=== PATIENT | male | born 1970 | race Caucasian/White ===

== ENCOUNTER 2020-06-11 12:08 | Outpatient (REF) | payer OTHER, SELFPAY ==
[2020-06-11 14:00] LABS: MANUAL DIFF FLAG NO
[2020-06-11 14:04] LABS: Basophils Absolute Auto 0.1 X10*3/uL (0.0-0.2); Eosinophils Absolute Auto 0.4 X10*3/uL (0.0-0.4); Eosinophils Percent Auto 2.8 % (0-4); Hematocrit 46.6 % (42-52); Hemoglobin 15.5 g/dl (14.0-18.0); Imm Gran Abs Auto 0.06 X10*3/uL (0.00-0.03); Imm Gran Pct Auto 0.4 % (0.0-0.4); Lymphocytes Absolute Auto 4.7 X10*3/uL (1.2-4.9); Mean Corpuscular HGB Conc 33.3 g/dl (31.0-36.0); Mean Corpuscular Hemoglobin 30.6 pg (27.0-33.0); Mean Corpuscular Volume 92.1 fL (80-98); Mean Platelet Volume 9.7 fL (9.4-12.4); Monocytes Absolute Auto 0.8 X10*3/uL (0.1-1.2); Monocytes Percent Auto 5.9 % (2-11); Neutrophils Percent Auto 56.9 % (45-73); Platelet Count 417 X10*3/uL (160-400); Red Blood Count 5.06 X10*6/uL (4.60-5.80); White Blood Count 14.1 X10*3/uL (4.8-10.8)
[2020-06-11 14:56] LABS: Alanine Aminotransferase 28 U/L (0-40); Albumin Level 4.5 g/dL (3.5-5.0); Alkaline Phosphatase 108 U/L (39-117); Anion Gap 14 (12-20); Aspartate Amino Transferase 18 U/L (5-37); Bilirubin Total 0.3 mg/dL (0.0-1.0); Blood Urea Nitrogen 5 mg/dL (9-16); Calcium 9.4 mg/dL (8.4-10.2); Carbon Dioxide 29 mmol/L (22-29); Chloride 102 mmol/L (96-108); Estimated Glomerular Filt Rate > 60; Glucose Random 88 mg/dL (60-115); Potassium 4.5 mmol/l (3.3-5.1); Sodium 140 mmol/L (135-145); Total Protein 7.4 g/dL (6.5-8.0)
== END 2020-06-11 12:09 | disposition home or self-care (01) ==
LOC: HO.HMGCLDS 12:08
PROVIDERS: PCP Nurse Practitioner Family; Visit Provider Nurse Practitioner Family
DX: R63.0 Anorexia (principal); R52 Pain, unspecified; Z20.828 Contact with and (suspected) exposure to other viral communicable diseases
CPT/HCPCS: 36415; 80053; 85025; 87635

== ENCOUNTER 2020-06-13 15:49 | Emergency (ER) | payer OTHER, SELFPAY ==
--- NOTE | 2020-06-13 | CT_ITS ---
EXAMINATION: CT HEAD WITHOUT CONTRAST CT CERVICAL SPINE WITHOUT CONTRAST CLINICAL INFORMATION: Headache. Neck pain. COMPARISON: CT head from 03/26/2015. TECHNIQUE: Contiguous axial imaging was performed from the skull base to vertex without intravenous administration of contrast. Contiguous axial imaging was performed from the upper chest through the skull base without intravenous administration of contrast. Coronal and sagittal reformats were obtained at the acquisition workstation. DLP: 1104 mGy-cm This CT examination was performed using dose optimization techniques as appropriate, variously including the following: *Automated exposure control. *Adjustment of mA and/or kV according to patient size (this includes techniques or standardized protocols for targeted exams where dose is matched to indication/reason for exam; i.e. extremities or head). *Use of iterative reconstruction technique. FINDINGS: Head: There is no evidence of acute intracranial hemorrhage or edematous territorial infarction. There is no abnormal attenuation within the brain parenchyma. Clemente-white matter differentiation is preserved. The ventricles are normal in size and configuration. No evidence for obstructive hydrocephalus. No abnormal mass effect or midline shift. Chronic small right-sided choroid fissure cyst. No extra-axial fluid collections. No acute soft tissue or osseous abnormalities. There is a subperiosteal lipoma along the left aspect of the frontal bone, measuring 2.8 cm wide by 1.1 cm deep. Moderate mucosal thickening of the paranasal sinuses, including near complete opacification of the right maxillary sinus. Rightward nasal septal deviation. The mastoid air cells and middle ear cavities remain well aerated. Cervical Spine: The atlantooccipital and atlantoaxial articulations remain well aligned. Mild reversal the normal cervical lordosis centered on C4. Otherwise, there is anatomic alignment of the vertebral bodies and posterior elements. No evidence of acute fracture or subluxation. The vertebral body heights are maintained. Mild to moderate degenerative disc disease from C3-C6. Mild disc-osteophyte complexes at C3-C4 and C4-C5. No evidence of overt spinal canal stenosis. No significant osseous encroachment on the neural foramina. There is no prevertebral soft tissue swelling. The thyroid gland and remaining cervical soft tissues are normal in appearance. The lung apices are notable for underlying centrilobular emphysema. IMPRESSION: 1. No evidence of acute intracranial hemorrhage or edematous territorial infarction. 2. No evidence of acute fracture or traumatic subluxation of the cervical spine. 3. Moderate mucosal sinonasal disease with near complete opacification of the right maxillary sinus. 4. Mild multilevel degenerative spinal arthropathy of the cervical spine. 5. Emphysema.
[2020-06-13 16:03] VITALS: BP 142/81; PULSE 72; RESP 18; TEMP 35.6; O2SAT 98; BMI 29.3
--- NOTE | 2020-06-13 17:57 | ED.GENADULT ---
HPI - General Adult General Chief complaint: General Medical <KAJAL Garcia Last Filed: 06/14/20 01:57> Stated complaint: STIFF NECK <KAJAL Garcia Last Filed: 06/14/20 01:57> Time Seen by Provider: 06/13/20 18:38 <KAJAL Garcia Last Filed: 06/14/20 01:57> Source: patient <KAJAL Garcia Last Filed: 06/14/20 01:57> Mode of arrival: ambulatory <Anju Calles NP - Last Filed: 06/14/20 01:57> Limitations: no limitations <KAJAL Garcia Last Filed: 06/14/20 01:57> History of Present Illness HPI narrative: patient presents with neck pain, stiffness and headache. He has had this pain for several weeks however the pain has got worse today. Is having a difficult time with daily activities because of the neck pain and stiffness. He does have full range of motion, moves all extremities against resistance, does not report any chest pain or pressure, palpitations, abdominal pain, abdominal distention, fevers, chills, dizziness, lightheadedness, weakness, fevers and chills. <KAJAL Garcia Last Filed: 06/14/20 01:57> Onset (ago): week(s) ( Several) <Anju Calles NP - Last Filed: 06/14/20 01:57> Location: head and neck <KAJAL Garcia Last Filed: 06/14/20 01:57> Severity: moderate <KAJAL Garcia Last Filed: 06/14/20 01:57> Severity scale (1-10): 8 <Anju Calles NP - Last Filed: 06/14/20 01:57> Quality: aching and constant <Anju Calles NP - Last Filed: 06/14/20 01:57> Pain Consistency: constant <KAJAL Garcia Last Filed: 06/14/20 01:57> Relieving factors: none <KAJAL Garcia Last Filed: 06/14/20 01:57> Exacerbating factors: movement <Anju Calles NP - Last Filed: 06/14/20 01:57> Associated symptoms: denies other symptoms <Anju Calles NP - Last Filed: 06/14/20 01:57> Treatments prior to arrival: NSAID <Anju Calles NP - Last Filed: 06/14/20 01:57> Related Data Home medications: Previous Rx's Medication Instructions Recorded tramadol 50 mg PO Q8H PRN #10 tab 06/13/20 <Anju Calles NP - Last Filed: 06/14/20 01:57> Allergies/adverse reactions: Allergies Allergy/AdvReac Type Severity Reaction Status Date / Time penicillin V Allergy Unknown Unknown Verified 06/13/20 16:02 Penicillins [PENICILLINS] Allergy Unknown UNKNOWN Verified 06/13/20 16:02 <Anju Calles NP - Last Filed: 06/14/20 01:57> Review of Systems Review of Systems: Yes all other systems are reviewed and are negative <Anju Calles NP - Last Filed: 06/14/20 01:57> Constitutional: Constitutional: Reports headache(s) <Anju Calles NP - Last Filed: 06/14/20 01:57> Eyes: Eyes: Reports no additional eye complaints <Anju Calles NP - Last Filed: 06/14/20 01:57> ENT: Reports headache(s) and Reports neck pain <Anju Calles NP - Last Filed: 06/14/20 01:57> Cardiovascular: Cardiovascular: Reports no additional cardiovascular complaints <Anju Calles NP - Last Filed: 06/14/20 01:57> Respiratory: Respiratory: Reports no additional respiratory complaints <Anju Calles NP - Last Filed: 06/14/20 01:57> Gastrointestinal: Gastrointestinal: Reports no additional gastrointestinal complaints <Anju Calles NP - Last Filed: 06/14/20 01:57> Genitourinary: Genitourinary: Reports no additional male genitourinary complaints <Anju Calles NP - Last Filed: 06/14/20 01:57> Musculoskeletal: Musculoskeletal: Reports no additional musculoskeletal complaints <Anju Calles NP - Last Filed: 06/14/20 01:57> Integumentary/Breasts: Skin/Breast: Reports system reviewed and no additional complaints, except as docu <Anju Calles NP - Last Filed: 06/14/20 01:57> Neurologic: Reports system reviewed and no additional complaints, except as documented and Reports headache(s) <Anju Calles NP - Last Filed: 06/14/20 01:57> Psychiatric: Psychiatric: Reports no additional psychiatric complaints <Anju Calles NP - Last Filed: 06/14/20 01:57> Endocrine: Endocrine: Reports no additional endocrine complaints <Ajnu Calles NP - Last Filed: 06/14/20 01:57> Hematologic/Lymphatic: Hematologic/Lymphatic: Reports no additional hematologic/lymphatic complaints <Anju Calles NP - Last Filed: 06/14/20 01:57> [facility] Past Medical History Attestation statement: The following information was validated with the patient. <Anju Calles NP - Last Filed: 06/14/20 01:57> Source: old records reviewed <Anju Calles NP - Last Filed: 06/14/20 01:57> Medical History: Medical History (Updated 06/14/20 @ 00:00 by Hubert Miguel) No known health problems <Anju Calles NP - Last Filed: 06/14/20 01:57> Surgical History: Surgical History (Updated 06/13/20 @ 16:06 by Alexandra Maya) Hx of tonsillectomy <Anju Calles NP - Last Filed: 06/14/20 01:57> Social History Social History: Social History Smoking Status: Current every day smoker Smoked in Last 30 Days: Yes Use of substances other than those prescribed or required for medical reasons: Yes Substance Use Type: Marijuana Substance Use Frequency: Socially Advance Directives: No Advance Directives Information Provided: Yes <Anju Calles NP - Last Filed: 06/14/20 01:57> Physical Exam Vital Signs and I&O and Narrative: Vital Signs and I&O: Vital Signs Temp 98.1 F 06/13/20 19:29 Pulse 62 06/13/20 19:29 Resp 16 06/13/20 19:29 BP 124/72 10/07/20 19:29 Pulse Ox 96 06/13/20 19:29 Intake & Output 06/13/20 06/13/20 06/14/20 06:59 18:59 06:59 Weight 80 kg Body Mass Index 29.3 <Anju Calles NP - Last Filed: 06/14/20 01:57> Vital Signs and I&O: Vital Signs Temp 98.1 F 06/13/20 19:29 Pulse 62 06/13/20 19:29 Resp 16 06/13/20 19:29 BP 124/72 06/13/20 19:29 Pulse Ox 96 06/13/20 19:29 Intake & Output 06/13/20 06/13/20 06/14/20 06:59 18:59 06:59 Weight 80 kg Body Mass Index 29.3 <Gentry To DO - Last Filed: 06/14/20 02:30> Const: General: cooperative, healthy appearing, comfortable, no acute distress, well developed, alert, awake and Physically active <Anju Calles NP - Last Filed: 06/14/20 01:57> Nutritional Appearance: average body habitus and well nourished <Anju Calles NP - Last Filed: 06/14/20 01:57> Orientation/consciousness: patient oriented x3 <Anju Calles NP - Last Filed: 06/14/20 01:57> Limitations: no limitations <Anju Calles NP - Last Filed: 06/14/20 01:57> HENMT: Head: Yes normal to inspection, Yes normocephalic, Yes atraumatic and No Temporal artery tenderness present <Anju Calles NP - Last Filed: 06/14/20 01:57> Ears: hearing grossly normal bilaterally and TM's normal bilaterally <Anju Calles NP - Last Filed: 06/14/20 01:57> General nose exam: Normal external nose present and Normal nares present <Anju Calles NP - Last Filed: 06/14/20 01:57> Face and sinus: Yes normal facial exam <Anju Calles NP - Last Filed: 06/14/20 01:57> Mouth: Normal oral and palatal mucosa present <Anju Calles NP - Last Filed: 06/14/20 01:57> Throat: Yes posterior oropharynx normal, Yes tonsils normal and Yes uvula midline <Anju Calles NP - Last Filed: 06/14/20 01:57> Eyes: General: appearance normal, both eyes and all related structures <Anju Calles NP - Last Filed: 06/14/20 01:57> Alignment and Position: alignment normal <Anju Calles NP - Last Filed: 06/14/20 01:57> Eyelids: Yes eyelids normal <Anju Calles [employer] - Last Filed: 06/14/20 01:57> Pupils: Equal, round and reactive pupils present <Anju Calles NP - Last Filed: 06/14/20 01:57> EOM: EOMs intact bilaterally <Anju Calles NP - Last Filed: 06/14/20 01:57> Neck: Neck: Yes normal visual inspection, Yes full ROM, Yes no lymphadenopathy, Yes no meningeal signs, Yes trachea midline, No anterior neck swelling, No positive Brudzinski's sign, No positive Kernig's sign, Yes tender ( vertebral tenderness) and Yes no JVD <Anju Calles [employer] MEMBER - Last Filed: 06/14/20 01:57> Lymphatic: no lymphadenopathy noted <Anju Calles NP - Last Filed: 06/14/20 01:57> Chest: Chest palpation & inspection: normal inspection of the chest and normal palpation of entire chest wall <Anju Calles NP - Last Filed: 06/14/20 01:57> Resp: Effort & Inspection: normal respiratory effort and able to speak in complete sentences <Anju Calles NP - Last Filed: 06/14/20 01:57> Auscultation: clear to auscultation bilaterally <Anju Calles NP - Last Filed: 06/14/20 01:57> Cardio: Rate: regular rate <Anju Calles NP - Last Filed: 06/14/20 01:57> Rhythm: regular rhythm <Anju Calles NP - Last Filed: 06/14/20 01:57> Heart sounds: S1 normal heart sound present and S2 normal heart sound present <Anju Calles NP - Last Filed: 06/14/20 01:57> GI: Inspection: Yes normal to inspection <Anju Calles NP - Last Filed: 06/14/20 01:57> Auscultation: normal bowel sounds <Anju Calles [employer]BER - Last Filed: 06/14/20 01:57> : General: Yes no CVA tenderness <Anju Calles [employer] MEMBER - Last Filed: 06/14/20 01:57> Back/Spine/Pelvis: Back: no CVA tenderness <Anju Calles [employer]BER - Last Filed: 06/14/20 01:57> Cervical Spine: cervical ROM normal, No pain with cervical ROM, No cervical spasm, Cervical spine tenderness and No step off deformity <Anju Calles [employer] MEMBER - Last Filed: 06/14/20 01:57> Thoracic/Lumbar Spine: thoracic and lumbar spine normal to inspection <Anju Calles [employer] MEMBER - Last Filed: 06/14/20 01:57> Skin: General skin exam: no rashes or lesions noted <Anju Calles [employer]BER - Last Filed: 06/14/20 01:57> Rashes: no rashes <Anju Calles [employer] MEMBER - Last Filed: 06/14/20 01:57> Neuro: General: patient oriented x3 and no meningeal signs <Anju Calles NP - Last Filed: 06/14/20 01:57> Cranial nerves: Yes CN's II-XII intact bilaterally, Yes Facial sensation intact/muscles of mastication intact, Yes Intact sense of smell present and Yes Equal, round and reactive pupils present <Anju Calles [employer] MEMBER - Last Filed: 06/14/20 01:57> Cognition (Neuro): normal cognition <Anju Calles [employer]BER - Last Filed: 06/14/20 01:57> Gait exam (Neuro): Normal gait present <Anju Calles NP - Last Filed: 06/14/20 01:57> Motor exam (neuro): 5/5 motor strength present throughout <Anju Calles NP - Last Filed: 06/14/20 01:57> Extrem: General: Yes normal to inspection, Yes full ROM and Yes capillary refill normal <Anju Calles [employer] - Last Filed: 06/14/20 01:57> Psych: Appearance: grossly normal <Anju CallesKAJAL - Last Filed: 06/14/20 01:57> Mental Status: mental status grossly normal <Anju CallesKAJAL - Last Filed: 06/14/20 01:57> Speech and movement: Normal speech and movement present <Anju Ferrellbrenden [employer]BER - Last Filed: 06/14/20 01:57> Attitude: cooperative <Anju MooreKAJAL musa - Last Filed: 06/14/20 01:57> Thought process: Normal thought process present <Anju CallesKAJAL - Last Filed: 06/14/20 01:57> Course Reevaluation(s) Reevaluation #1: CT scans are negative, patient agrees to follow-up with pain management. <Anju MooreKAJAL musa - Last Filed: 06/14/20 01:57> Time: 20:28 <Anju MooreKAJAL musa - Last Filed: 06/14/20 01:57> Medical Decision Making Differential Diagnosis Differential Diagnosis: cervical fracture, degenerative disc disease, meningitis <Anju FerrellKAJAL wilcox - Last Filed: 06/14/20 01:57> Medical Records Medical records reviewed: Yes I reviewed the patient's medical records. <Anju MooreKAJAL musa - Last Filed: 06/14/20 01:57> Lab Data Lab results reviewed: Yes I reviewed the patient's lab results. <Anju MooreKAJAL musa - Last Filed: 06/14/20 01:57> Result diagrams: : 06/13/20 19:58 06/13/20 19:58 <Anju CallesKAJAL - Last Filed: 06/14/20 01:57> Labs: Lab Results 06/13/20 06/13/20 06/13/20 Range/Units 19:58 19:58 19:58 WBC 13.0 H (4.8-10.8) X10*3/uL RBC 4.92 (4.60-5.80) X10*6/uL Hgb 15.3 (14.0-18.0) g/dl Hct 44.7 (42-52) % MCV 90.9 (80-98) fL MCH 31.1 (27.0-33.0) pg MCHC 34.2 (31.0-36.0) g/dl RDW 12.8 (11.0-16.0) % Plt Count 358 (160-400) X10*3/uL MPV 9.2 L (9.4-12.4) fL Immature Gran % (Auto) 0.2 (0.0-0.4) % Neut % (Auto) 48.1 (45-73) % Lymph % (Auto) 40.8 H (20-40) % [place] % (Auto) 6.8 (2-11) % Eos % (Auto) 3.0 (0-4) % Baso % (Auto) 1.1 (0-2) % Lymph # (Auto) 5.3 H (1.2-4.9) X10*3/uL [place] # (Auto) 0.9 (0.1-1.2) X10*3/uL Eos # (Auto) 0.4 (0.0-0.4) X10*3/uL Baso # (Auto) 0.1 (0.0-0.2) X10*3/uL Abs Immat Gran (auto) 0.03 (0.00-0.03) X10*3/uL Absolute Neuts (auto) 6.3 (2.0-8.3) X10*3/uL Absolute Nucleated RBC 0.000 (0.0-0.012) X10*3/uL Nucleated RBC % (auto) 0.0 (0.0-0.2) /100WBC Smear Tech's Comments VERIFIED PT 12.1 (10.8-13.0) SEC INR 1.0 (0.9-1.1) Sodium 139 (135-145) mmol/L Potassium 4.1 (3.3-5.1) mmol/l Chloride 104 (96-108) mmol/L Carbon Dioxide 26 (22-29) mmol/L Anion Gap 13 (12-20) BUN 7 L (9-16) mg/dL Creatinine 0.76 (0.5-1.4) mg/dL Estim Creat Clear Calc 114.5 Estimated GFR > 60 Random Glucose 88 (60-115) mg/dL Calcium 8.6 (8.4-10.2) mg/dL <Candy Marli, [employer] MEMBER - Last Filed: 06/14/20 01:57> Lab Results 06/13/20 06/13/20 06/13/20 Range/Units 19:58 19:58 19:58 WBC 13.0 H (4.8-10.8) X10*3/uL RBC 4.92 (4.60-5.80) X10*6/uL Hgb 15.3 (14.0-18.0) g/dl Hct 44.7 (42-52) % MCV 90.9 (80-98) fL MCH 31.1 (27.0-33.0) pg MCHC 34.2 (31.0-36.0) g/dl RDW 12.8 (11.0-16.0) % Plt Count 358 (160-400) X10*3/uL MPV 9.2 L (9.4-12.4) fL Immature Gran % (Auto) 0.2 (0.0-0.4) % Neut % (Auto) 48.1 (45-73) % Lymph % (Auto) 40.8 H (20-40) % [place] % (Auto) 6.8 (2-11) % Eos % (Auto) 3.0 (0-4) % Baso % (Auto) 1.1 (0-2) % Lymph # (Auto) 5.3 H (1.2-4.9) X10*3/uL [place] # (Auto) 0.9 (0.1-1.2) X10*3/uL Eos # (Auto) 0.4 (0.0-0.4) X10*3/uL Baso # (Auto) 0.1 (0.0-0.2) X10*3/uL Abs Immat Gran (auto) 0.03 (0.00-0.03) X10*3/uL Absolute Neuts (auto) 6.3 (2.0-8.3) X10*3/uL Absolute Nucleated RBC 0.000 (0.0-0.012) X10*3/uL Nucleated RBC % (auto) 0.0 (0.0-0.2) /100WBC Smear Tech's Comments VERIFIED PT 12.1 (10.8-13.0) SEC INR 1.0 (0.9-1.1) Sodium 139 (135-145) mmol/L Potassium 4.1 (3.3-5.1) mmol/l Chloride 104 (96-108) mmol/L Carbon Dioxide 26 (22-29) mmol/L Anion Gap 13 (12-20) BUN 7 L (9-16) mg/dL Creatinine 0.76 (0.5-1.4) mg/dL Estim Creat Clear Calc 114.5 Estimated GFR > 60 Random Glucose 88 (60-115) mg/dL Calcium 8.6 (8.4-10.2) mg/dL <Gentry To DO - Last Filed: 06/14/20 02:30> Imaging Data CT scan - head: Attestation: I personally reviewed and interpreted this imaging study as follows: <Anju Calles NP - Last Filed: 06/14/20 01:57> Radiologist's impression: FINDINGS: Head: There is no evidence of acute intracranial hemorrhage or edematous territorial infarction. There is no abnormal attenuation within the brain parenchyma. Clemente-white matter differentiation is preserved. The ventricles are normal in size and configuration. No evidence for obstructive hydrocephalus. No abnormal mass effect or midline shift. Chronic small right-sided choroid fissure cyst. No extra-axial fluid collections. No acute soft tissue or osseous abnormalities. There is a subperiosteal lipoma along the left aspect of the frontal bone, measuring 2.8 cm wide by 1.1 cm deep. Moderate mucosal thickening of the paranasal sinuses, including near complete opacification of the right maxillary sinus. Rightward nasal septal deviation. The mastoid air cells and middle ear cavities remain well aerated. Cervical Spine: The atlantooccipital and atlantoaxial articulations remain well aligned. Mild reversal the normal cervical lordosis centered on C4. Otherwise, there is anatomic alignment of the vertebral bodies and posterior elements. No evidence of acute fracture or subluxation. The vertebral body heights are maintained. Mild to moderate degenerative disc disease from C3-C6. Mild disc-osteophyte complexes at C3-C4 and C4-C5. No evidence of overt spinal canal stenosis. No significant osseous encroachment on the neural foramina. There is no prevertebral soft tissue swelling. The thyroid gland and remaining cervical soft tissues are normal in appearance. The lung apices are notable for underlying centrilobular emphysema. IMPRESSION: 1. No evidence of acute intracranial hemorrhage or edematous territorial infarction. 2. No evidence of acute fracture or traumatic subluxation of the cervical spine. 3. Moderate mucosal sinonasal disease with near complete opacification of the right maxillary sinus. 4. Mild multilevel degenerative spinal arthropathy of the cervical spine. 5. Emphysema <Anju Calles NP - Last Filed: 06/14/20:57> Chest x-ray: Attestation: I personally reviewed and interpreted this imaging study as follows: <KAJAL Garcia Last Filed: 06/14/20 01:57> Radiologist's impression: FINDINGS: No significant abnormality is noted involving the heart, lungs, mediastinum, bony thorax or soft tissues. IMPRESSION: Unremarkable examination. <KAJAL Garcia Last Filed: 06/14/20 01:57> Discharge Plan Discharge Clinical Impression: Degeneration, intervertebral disc, cervical <Anju Calles NP - Last Filed: 06/14/20:57> Patient Disposition: Home, Self-Care <KAJAL Garcia Last Filed: 06/14/20 01:57> Instructions: Degenerative Disc Disease (ED) <KAJAL Garcia Last Filed: 06/14/20 01:57> Additional Instructions: you were evaluated for neck pain. CT scan shows degenerative disc disease. Follow-up with pain management. Please call and make an appointment follow-up with primary care provider as needed. Return to the emergency department for any new, concerning, or worsening symptoms. <KAJAL Garcia Last Filed: 06/14/20 01:57> Prescriptions: New tramadol 50 mg tablet 50 mg PO Q8H PRN (Reason: pain) Qty: 10 RF: 0 <KAJAL Garcia Last Filed: 06/14/20 01:57> Referrals: Royer Zuñiga MD [Physician] - 2 days ( cervical disc degeneration) <KAJAL Garcia Last Filed: 06/14/20 01:57> Stand Alone Forms: Work/School Release <KAJAL Garcia Last Filed: 06/14/20 01:57> Interventions: ED Discharge Assessment Last Done: 06/13/20 20:54 <Anju Calles NP - Last Filed: 06/14/20 01:57> Discharge Date/Time: 06/13/20 20:55 <Anju Calles NP - Last Filed: 06/14/20 01:57>
[2020-06-13 18:33] VITALS: BP 97/66; PULSE 63; RESP 16; TEMP 36.9; O2SAT 97
--- NOTE | 2020-06-13 18:39 | XR_ITS ---
EXAMINATION: XR CHEST CLINICAL INFORMATION: Baseline COMPARISON: None TECHNIQUE: Frontal portable view of the chest was obtained. 6:51 PM FINDINGS: No significant abnormality is noted involving the heart, lungs, mediastinum, bony thorax or soft tissues. IMPRESSION: Unremarkable examination.
[2020-06-13 19:29] VITALS: BP 124/72; PULSE 62; RESP 16; TEMP 36.7; O2SAT 96
[2020-06-13 20:06] LABS: Basophils Absolute Auto 0.1 X10*3/uL (0.0-0.2); Basophils Percent Auto 1.1 % (0-2); Eosinophils Absolute Auto 0.4 X10*3/uL (0.0-0.4); Hematocrit 44.7 % (42-52); Hemoglobin 15.3 g/dl (14.0-18.0); Imm Gran Abs Auto 0.03 X10*3/uL (0.00-0.03); Imm Gran Pct Auto 0.2 % (0.0-0.4); Lymphocytes Absolute Auto 5.3 X10*3/uL (1.2-4.9); Lymphocytes Percent Auto 40.8 % (20-40); MANUAL DIFF FLAG SCAN; Mean Corpuscular HGB Conc 34.2 g/dl (31.0-36.0); Mean Corpuscular Hemoglobin 31.1 pg (27.0-33.0); Mean Corpuscular Volume 90.9 fL (80-98); Mean Platelet Volume 9.2 fL (9.4-12.4); Monocytes Absolute Auto 0.9 X10*3/uL (0.1-1.2); Monocytes Percent Auto 6.8 % (2-11); Neutrophils Absolute Auto 6.3 X10*3/uL (2.0-8.3); Neutrophils Percent Auto 48.1 % (45-73); Platelet Count 358 X10*3/uL (160-400); Red Blood Count 4.92 X10*6/uL (4.60-5.80); Red Cell Distribution Width 12.8 % (11.0-16.0); SCAN SMEAR FLAG 1
[2020-06-13 20:26] LABS: Anion Gap 13 (12-20); Blood Urea Nitrogen 7 mg/dL (9-16); Calcium 8.6 mg/dL (8.4-10.2); Carbon Dioxide 26 mmol/L (22-29); Chloride 104 mmol/L (96-108); Creatinine Clr Calc Pharmacy 114.5; Estimated Glomerular Filt Rate > 60; Glucose Random 88 mg/dL (60-115); Potassium 4.1 mmol/l (3.3-5.1); Sodium 139 mmol/L (135-145)
[2020-06-13 20:28] LABS: Prothrombin Time 12.1 SEC (10.8-13.0)
[2020-06-13 20:30] LABS: SLIDE REVIEW VERIFIED
[2020-06-13] MEDS: Ketorolac Tromethamine 30 MG/ML VIAL IM (20:44)
== END 2020-06-13 20:55 | disposition home or self-care (01) ==
PROVIDERS: Nurse Practitioner Family; Emergency Provider Emergency Medicine; PCP Nurse Practitioner Family
DX: M50.30 Other cervical disc degeneration, unspecified cervical region (principal); F17.200 Nicotine dependence, unspecified, uncomplicated
CPT/HCPCS: 36415; 70450; 71045; 72125; 80048; 85025; 85610; 96372; 99284; J1885

== ENCOUNTER → 2020-07-04 08:26 | Outpatient (BNVA) | payer OTHER, SELFPAY | PROVIDERS: PCP Nurse Practitioner Family; Visit Provider Surgery | DX: Z76.89 Persons encountering health services in other specified circumstances (principal) ==

== ENCOUNTER 2020-07-23 07:33 | Outpatient (REF) | payer OTHER, SELFPAY ==
[2020-07-23 07:53] VITALS: BP 152/74; PULSE 74; RESP 16; TEMP 36.9; O2SAT 96
[2020-07-23 07:57] VITALS: BMI 27.4
[2020-07-23 08:38] VITALS: BP 114/69; PULSE 65; RESP 16; O2SAT 96
--- NOTE | 2020-07-23 08:58 | OP_ITS ---
SURGEON: Harry Torres MD INDICATIONS: The patient is a 50-year-old male with note of a lipomatous mass in the forehead measuring about 3.5 cm x 3 cm. He wanted this removed. He understood the technique of excision under local anesthesia and is aware of the risks, benefits, and alternatives. PREOPERATIVE DIAGNOSIS: Lipoma, forehead. POSTOPERATIVE DIAGNOSIS: Lipoma, forehead. PROCEDURE PERFORMED: Excision of lipoma from the forehead. ESTIMATED BLOOD LOSS: COMPLICATIONS: ANESTHESIA: ASSISTANTS: SPECIMENS: DESCRIPTION OF PROCEDURE: He was brought into the minor procedure room. He was placed supine. The area of the lipoma was prepped and draped. Lidocaine 1% was used for local anesthesia. An incision was made in the skin overlying the lipoma transversely using blade #15, it was carried down to full-thickness skin and subcutaneous fat until we visualized the lipoma. We sharply dissected the lipoma off the rest of the subcutaneous layer until this completely delivered and sent as specimen. I irrigated the area of excision. I closed the incision with full-thickness nylon 5-0 interrupted sutures. Dressings were applied. He tolerated procedure well. There were no complications noted. He will be seen in the office for followup in the next week for removal of sutures. MD ROXANA Bernal/MIMIL / [id number]
== END 2020-07-23 07:34 | disposition home or self-care (01) ==
LOC: HO.MS 07:33
PROVIDERS: PCP Nurse Practitioner Family; Visit Provider Surgery
PROC: (CPT 11444; principal; 2020-07-23 08:00)
DX: D17.0 Benign lipomatous neoplasm of skin and subcutaneous tissue of head, face and neck (principal)
CPT/HCPCS: 11444; 88304

== ENCOUNTER → 2020-08-01 10:04 | Outpatient (BNVA) | payer OTHER, SELFPAY | PROVIDERS: PCP Nurse Practitioner Family; Visit Provider Surgery | DX: Z76.89 Persons encountering health services in other specified circumstances (principal) ==

== ENCOUNTER 2021-01-05 05:04 | Emergency (ER) | payer SELFPAY ==
[2021-01-05 05:09] VITALS: BP 134/65; PULSE 69; RESP 16; TEMP 36.7; O2SAT 96; BMI 27.4
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
== END 2021-01-05 07:37 | disposition home or self-care (01) ==
PROVIDERS: Emergency Provider Emergency Medicine
DX: H65.91 Unspecified nonsuppurative otitis media, right ear (principal); H92.01 Otalgia, right ear; F17.200 Nicotine dependence, unspecified, uncomplicated; Z71.6 Tobacco abuse counseling; F12.90 Cannabis use, unspecified, uncomplicated; Z79.899 Other long term (current) drug therapy
CPT/HCPCS: 99283

== ENCOUNTER 2021-04-16 12:30 | Emergency (ER) | payer SELFPAY ==
--- NOTE | 2021-04-16 | ECG_ITS ---
Test Reason : CHEST PAIN Blood Pressure : / mmHG Vent. Rate : 073 BPM Atrial Rate : 073 BPM P-R Int : 152 ms QRS Dur : 080 ms QT Int : 410 ms P-R-T Axes : 060 070 058 degrees QTc Int : 451 ms Normal sinus rhythm T-wave inversion in Anteroseptal leads / Anterior leads When compared with ECG of 16-SEP-2005 14:20, T wave inversion now evident in Anterior leads QT has lengthened Referred By: Generic ED Physician Electronically Signed By:ELIANA MCCOLLUM MD
--- NOTE | ~2021-04-16 | XR_ITS ---
EXAMINATION: XR CHEST CLINICAL INFORMATION: Chest pain COMPARISON: June 13, 2020 TECHNIQUE: 2 views of the chest were obtained. FINDINGS: No significant abnormality is noted involving the heart, lungs, mediastinum, bony thorax or soft tissues. XR/XR chest 2V IMPRESSION: No acute disease.
[2021-04-16 14:28] VITALS: BP 135/96; PULSE 76; RESP 18; TEMP 36.2; O2SAT 97; BMI 22.4
[2021-04-16 14:54] LABS: MANUAL DIFF FLAG NO
[2021-04-16 15:03] LABS: Basophils Absolute Auto 0.1 X10*3/uL (0.0-0.2); Eosinophils Absolute Auto 0.2 X10*3/uL (0.0-0.4); Eosinophils Percent Auto 1.5 % (0-4); Hematocrit 51.4 % (42-52); Hemoglobin 17.9 g/dl (14.0-18.0); Imm Gran Abs Auto 0.03 X10*3/uL (0.00-0.03); Imm Gran Pct Auto 0.2 % (0.0-0.4); Lymphocytes Absolute Auto 4.2 X10*3/uL (1.2-4.9); Lymphocytes Percent Auto 35.1 % (20-40); Mean Corpuscular HGB Conc 34.8 g/dl (31.0-36.0); Mean Corpuscular Hemoglobin 31.4 pg (27.0-33.0); Mean Corpuscular Volume 90.2 fL (80-98); Mean Platelet Volume 8.5 fL (9.4-12.4); Monocytes Percent Auto 7.9 % (2-11); Neutrophils Absolute Auto 6.6 X10*3/uL (2.0-8.3); Neutrophils Percent Auto 54.3 % (45-73); Platelet Count 370 X10*3/uL (160-400); Red Cell Distribution Width 14.8 % (11.0-16.0); White Blood Count 12.1 X10*3/uL (4.8-10.8)
[2021-04-16 15:32] LABS: Anion Gap 15 (12-20); Blood Urea Nitrogen 3 mg/dL (9-16); Calcium 9.3 mg/dL (8.4-10.2); Carbon Dioxide 33 mmol/L (22-29); Chloride 99 mmol/L (96-108); Creatinine Clr Calc Pharmacy 98.1; Estimated Glomerular Filt Rate > 60; Glucose Random 87 mg/dL (60-115); Potassium 3.5 mmol/L (3.3-5.1); Sodium 143 mmol/L (135-145)
[2021-04-16 15:35] LABS: Troponin-I High Sensitivity < 3.5 ng/L (<3.5-35.0)
[2021-04-16 19:52] VITALS: BP 194/106; PULSE 78; RESP 15; O2SAT 95
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
[2021-04-16 21:57] VITALS: BP 144/85; PULSE 59; RESP 16; TEMP 36.9; O2SAT 95
[2021-04-16 22:00] VITALS: BP 142/80; PULSE 59; RESP 16; TEMP 36.9
[2021-04-16 22:33] LABS: Troponin-I High Sensitivity 3.8 ng/L (<3.5-35.0)
== END 2021-04-17 01:02 | disposition home or self-care (01) ==
PROVIDERS: Emergency Provider Emergency Medicine; PCP Nurse Practitioner Family
DX: R07.9 Chest pain, unspecified (principal); F10.129 Alcohol abuse with intoxication, unspecified; Y90.9 Presence of alcohol in blood, level not specified
CPT/HCPCS: 36415; 71046; 80048; 84484; 85025; 93005; 99283; 99285

== ENCOUNTER 2021-07-30 08:00 | Emergency (ER) | payer OTHER, SELFPAY ==
--- NOTE | 2021-07-30 | ECG_ITS ---
Test Reason : CHEST PAIN Blood Pressure : / mmHG Vent. Rate : 070 BPM Atrial Rate : 070 BPM P-R Int : 156 ms QRS Dur : 072 ms QT Int : 378 ms P-R-T Axes : 073 080 074 degrees QTc Int : 408 ms Sinus rhythm with marked sinus arrhythmia Otherwise normal ECG When compared with ECG of 30-JUL-2021 09:18, No significant change was found Referred By: Antonette Mendoza Electronically Signed By:
[2021-07-30 08:07] VITALS: BP 143/98; PULSE 89; RESP 18; TEMP 36.6; O2SAT 96; BMI 25.7
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
[2021-07-30] MEDS: 0.9 % Sodium Chloride 1,000 ML 999 ML IVCONT (09:07)
[2021-07-30 09:11] LABS: MANUAL DIFF FLAG NO
[2021-07-30] MEDS: ondansetron HCL 4 MG/2 ML VIAL IVPUSH (09:12)
[2021-07-30] MEDS: Famotidine/PF 20 MG/2 ML VIAL IVPUSH (09:13)
[2021-07-30] MEDS: Multivitamin TABLET 1 TAB PO (09:14)
[2021-07-30] MEDS: chlordiazePOXIDE HCl 25 MG CAPSULE PO (09:14)
[2021-07-30] MEDS: Magnesium Hydrox/Alum Hydrox 30 ML ORAL.SUSP PO (09:14)
[2021-07-30 09:17] LABS: Basophils Absolute Auto 0.2 X10*3/uL (0.0-0.2); Basophils Percent Auto 1.1 % (0-2); Eosinophils Absolute Auto 0.1 X10*3/uL (0.0-0.4); Eosinophils Percent Auto 0.5 % (0-4); Hematocrit 48.2 % (42.0-52.0); Hemoglobin 17.1 g/dl (14.0-18.0); Imm Gran Abs Auto 0.04 X10*3/uL (0.00-0.03); Imm Gran Pct Auto 0.3 % (0.0-0.4); Lymphocytes Absolute Auto 2.8 X10*3/uL (1.2-4.9); Lymphocytes Percent Auto 21.3 % (20-40); Mean Corpuscular HGB Conc 35.5 g/dl (31.0-36.0); Mean Corpuscular Hemoglobin 31.8 pg (27.0-33.0); Mean Corpuscular Volume 89.6 fL (80.0-98.0); Monocytes Absolute Auto 0.8 X10*3/uL (0.1-1.2); Monocytes Percent Auto 6.1 % (2-11); Neutrophils Absolute Auto 9.3 x10*3/uL (2.0-8.3); Neutrophils Percent Auto 70.7 % (45-73); Platelet Count 444 X10*3/uL (160-400); Red Blood Count 5.38 X10*6/uL (4.60-5.80); Red Cell Distribution Width 13.2 % (11.0-16.0); White Blood Count 13.2 X10*3/uL (4.8-10.8)
[2021-07-30 09:37] LABS: Troponin-I High Sensitivity < 3.5 ng/L (<3.5-35.0)
[2021-07-30 09:42] LABS: COVID-19 Test Negative (Negative)
[2021-07-30] MEDS: Nicotine 21 MG PATCH.TD24 TRANSDERMA (10:14)
--- NOTE | 2021-07-30 10:14 | PHA.MEDREC ---
Pharmacy Consult ? Medication Reconciliation Pharmacy has completed the medication reconciliation. There are no remarkable issues for provider's attention. Chantal Parham, LaurenD
[2021-07-30 10:37] VITALS: BP 139/83; PULSE 74; RESP 14; O2SAT 97
[2021-07-30 11:34] LABS: Alanine Aminotransferase 19 U/L (0-40); Albumin Level 4.1 g/dL (3.5-5.0); Alkaline Phosphatase 131 U/L (39-117); Anion Gap 14 (12-20); Aspartate Amino Transferase 22 U/L (5-37); Bilirubin Direct 0.3 mg/dL (0.0-0.5); Bilirubin Total 0.5 mg/dL (0.0-1.0); Blood Urea Nitrogen 6 mg/dL (9-16); Calcium 8.8 mg/dL (8.4-10.2); Carbon Dioxide 28 mmol/L (22-29); Chloride 103 mmol/L (96-108); Creatinine Clr Calc Pharmacy 81.7; Estimated Glomerular Filt Rate > 60; Glucose Random 101 mg/dL (60-115); Lipase 17 U/L (8-78); Magnesium 1.8 mg/dL (1.6-2.6); Sodium 140 mmol/L (135-145); Total Protein 7.2 g/dL (6.5-8.0)
[2021-07-30 11:35] LABS: Ethanol < 10 mg/dL
[2021-07-30 11:50] LABS: Appearance Urine CLEAR; Color Urine YELLOW; Glucose Urine UA NEG (NEG); Leukocyte Esterase Urine NEG (NEG); Nitrite Urine NEG (NEG); Specific Gravity - Urine 1.015 (1.005-1.025); Urine Blood NEG (NEG); Urine Ketones NEG (NEG); Urine Protein NEG (NEG-TRACE)
[2021-07-30 12:04] LABS: Amphetamine Screen Urine Not Detected (Not Detect); Barbiturates, Urine Not Detected (Not Detect); Benzodiazepines Screen Urine Not Detected (Not Detect); Cannabinoid Screen Urine POSITIVE (Not Detect); Cocaine Screen Urine Not Detected (Not Detect); Fentanyl, urine Not Detected (Not Detect); Opiate Screen Urine Not Detected (Not Detect); Phencyclidine Screen Urine Not Detected (Not Detect)
[2021-07-30 14:41] VITALS: BP 141/94; PULSE 75; RESP 16; TEMP 36.9; O2SAT 98
[2021-07-30] MEDS: LORazepam 1 MG TABLET PO (18:14)
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
[2021-07-31 05:58] VITALS: BP 159/88; PULSE 69; RESP 16; TEMP 36.7; O2SAT 96
--- NOTE | 2021-07-31 06:00 | PC.NURSE ---
Patient slept through the night, no distress observed/reported, behavior calm, quiet, and non-concerning during overnight shift, VS at baseline, will continue to monitor
--- NOTE | 2021-07-31 06:05 | PC.NURSE ---
Patient's disposition is Kathie f/u by care team in the morning
[2021-07-31] MEDS: Nicotine 21 MG PATCH.TD24 TRANSDERMA (08:40)
--- NOTE | 2021-08-02 09:58 | MHC.CARE ---
Check in call was not able to be completed due to not having phone number on file.
== END 2021-07-31 12:06 | disposition home or self-care (01) ==
PROVIDERS: Physician Assistant; Emergency Provider Emergency Medicine; PCP Nurse Practitioner Family
DX: F33.1 Major depressive disorder, recurrent, moderate (principal); R45.851 Suicidal ideations; J44.9 Chronic obstructive pulmonary disease, unspecified; F12.90 Cannabis use, unspecified, uncomplicated; R10.9 Unspecified abdominal pain; R07.9 Chest pain, unspecified; R11.2 Nausea with vomiting, unspecified; I25.10 Atherosclerotic heart disease of native coronary artery without angina pectoris; Z20.822 Contact with and (suspected) exposure to COVID-19; Z79.82 Long term (current) use of aspirin; F17.200 Nicotine dependence, unspecified, uncomplicated; Z71.6 Tobacco abuse counseling
CPT/HCPCS: 36415; 80048; 80076; 80307; 81003; 82077; 83690; 83735; 84484; 85025; 87635; 93005; 96361; 96374; 96375; 99284; J2405

== ENCOUNTER 2021-10-01 09:38 | Emergency (ER) | payer OTHER, SELFPAY ==
[2021-10-01 09:51] VITALS: BP 135/93; PULSE 72; RESP 19; TEMP 36.6; O2SAT 97; BMI 25.0
[2021-10-01 10:56] LABS: MANUAL DIFF FLAG NO
[2021-10-01 11:00] LABS: Appearance Urine CLEAR; Basophils Absolute Auto 0.1 X10*3/uL (0.0-0.2); Basophils Percent Auto 0.9 % (0-2); Color Urine YELLOW; Eosinophils Percent Auto 0.3 % (0-4); Glucose Urine UA NEG (NEG); Hematocrit 48.9 % (42.0-52.0); Hemoglobin 17.2 g/dl (14.0-18.0); Imm Gran Abs Auto 0.02 X10*3/uL (0.00-0.03); Imm Gran Pct Auto 0.3 % (0.0-0.4); Leukocyte Esterase Urine NEG (NEG); Lymphocytes Absolute Auto 2.6 X10*3/uL (1.2-4.9); Lymphocytes Percent Auto 35.3 % (20-40); Mean Corpuscular HGB Conc 35.2 g/dl (31.0-36.0); Mean Corpuscular Hemoglobin 31.9 pg (27.0-33.0); Mean Corpuscular Volume 90.6 fL (80.0-98.0); Mean Platelet Volume 8.6 fL (9.4-12.4); Monocytes Absolute Auto 0.8 X10*3/uL (0.1-1.2); Monocytes Percent Auto 10.6 % (2-11); Neutrophils Absolute Auto 3.9 x10*3/uL (2.0-8.3); Neutrophils Percent Auto 52.6 % (45-73); Nitrite Urine NEG (NEG); Platelet Count 273 X10*3/uL (160-400); Red Cell Distribution Width 14.1 % (11.0-16.0); Specific Gravity - Urine <= 1.005 (1.005-1.025); Urine Blood NEG (NEG); Urine Ketones NEG (NEG); Urine Protein NEG (NEG-TRACE); White Blood Count 7.5 X10*3/uL (4.8-10.8)
[2021-10-01 11:05] VITALS: BP 170/103; PULSE 75; RESP 17; TEMP 36.8; O2SAT 98
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
[2021-10-01 11:22] LABS: Alanine Aminotransferase 24 U/L (0-40); Albumin Level 3.8 g/dL (3.5-5.0); Alkaline Phosphatase 159 U/L (39-117); Anion Gap 16 (12-20); Aspartate Amino Transferase 37 U/L (5-37); Bilirubin Direct 0.2 mg/dL (0.0-0.5); Bilirubin Total 0.3 mg/dL (0.0-1.0); Blood Urea Nitrogen 7 mg/dL (9-16); Carbon Dioxide 26 mmol/L (22-29); Chloride 101 mmol/L (96-108); Creatinine Clr Calc Pharmacy 86.3; Estimated Glomerular Filt Rate > 60; Glucose Random 90 mg/dL (60-115); Lipase 90 U/L (8-78); Potassium 4.4 mmol/L (3.3-5.1); Sodium 139 mmol/L (135-145)
[2021-10-01 11:57] LABS: COVID-19 Test Negative (Negative); IDNOW Serial# 9DD0AD1C
[2021-10-01 12:02] LABS: MANUAL DIFF FLAG NO
[2021-10-01] MEDS: 0.9 % Sodium Chloride 1,000 ML 999 ML IVCONT (12:03)
[2021-10-01 12:04] LABS: Basophils Percent Auto 0.5 % (0-2); Eosinophils Percent Auto 0.5 % (0-4); Hematocrit 46.2 % (42.0-52.0); Hemoglobin 16.4 g/dl (14.0-18.0); Imm Gran Abs Auto 0.01 X10*3/uL (0.00-0.03); Imm Gran Pct Auto 0.1 % (0.0-0.4); Lymphocytes Absolute Auto 3.2 X10*3/uL (1.2-4.9); Lymphocytes Percent Auto 42.7 % (20-40); Mean Corpuscular HGB Conc 35.5 g/dl (31.0-36.0); Mean Corpuscular Hemoglobin 31.8 pg (27.0-33.0); Mean Corpuscular Volume 89.5 fL (80.0-98.0); Mean Platelet Volume 8.7 fL (9.4-12.4); Monocytes Absolute Auto 0.7 X10*3/uL (0.1-1.2); Monocytes Percent Auto 9.2 % (2-11); Neutrophils Absolute Auto 3.6 x10*3/uL (2.0-8.3); Platelet Count 255 X10*3/uL (160-400); Red Blood Count 5.16 X10*6/uL (4.60-5.80); Red Cell Distribution Width 13.9 % (11.0-16.0); White Blood Count 7.6 X10*3/uL (4.8-10.8)
[2021-10-01] MEDS: ondansetron HCL 4 MG/2 ML VIAL IVPUSH (12:50)
[2021-10-01] MEDS: Loperamide HCl 2 MG CAPSULE 4 MG PO (12:50)
[2021-10-01 12:51] VITALS: BP 154/91; PULSE 81; RESP 18; TEMP 36.7; O2SAT 99
[2021-10-01 12:58] LABS: OBS Int Ctl Valid YES; OBS1 NEGATIVE (NEGATIVE)
[2021-10-01] MEDS: Morphine Sulfate 2 MG/ML CARTRIDGE 1 MG IVPUSH (14:21)
[2021-10-01 15:07] VITALS: BP 162/85; PULSE 73; RESP 20; TEMP 36.7; O2SAT 99
== END 2021-10-01 15:09 | disposition home or self-care (01) ==
PROVIDERS: Emergency Provider Emergency Medicine; PCP Nurse Practitioner Family
DX: M79.10 Myalgia, unspecified site (principal); R19.7 Diarrhea, unspecified; K64.8 Other hemorrhoids; Z20.822 Contact with and (suspected) exposure to COVID-19; Z79.899 Other long term (current) drug therapy
CPT/HCPCS: 36415; 80048; 80076; 81003; 82272; 83690; 85025; 87635; 96361; 96374; 96375; 99283; 99284; J2270; J2405

== ENCOUNTER 2022-03-04 13:07 | Emergency (ER) | payer OTHER, SELFPAY ==
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
[2022-03-04 14:49] VITALS: BP 130/78; PULSE 72; RESP 18; TEMP 36.9; BMI 25.7
[2022-03-04 15:25] LABS: COVID-19 Test Negative (Negative); IDNOW Serial# 16C4AD1C
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
[2022-03-04] MEDS: Lidocaine HCl 1 % MPF 5 ML VIAL SUBCUT (19:33)
[2022-03-04 19:35] LABS: Basophils Percent Auto 0.7 % (0-2); Imm Gran Abs Auto 0.05 X10*3/uL (0.00-0.03); Imm Gran Pct Auto 0.3 % (0.0-0.4); MANUAL DIFF FLAG SCAN; Mean Corpuscular HGB Conc 34.8 g/dl (31.0-36.0); Mean Corpuscular Hemoglobin 30.5 pg (27.0-33.0); Red Cell Distribution Width 12.9 % (11.0-16.0); SCAN SMEAR FLAG 1
[2022-03-04] MEDS: Diphth,Pertus(ACell),Tet Adult 0.5 ML SYRINGE IM (19:41)
[2022-03-04 19:48] LABS: Basophils Absolute Auto 0.1 X10*3/uL (0.0-0.2); Eosinophils Absolute Auto 0.1 X10*3/uL (0.0-0.4); Eosinophils Percent Auto 0.7 % (0-4); Hematocrit 41.7 % (42.0-52.0); Hemoglobin 14.5 g/dl (14.0-18.0); Lymphocytes Absolute Auto 4.8 X10*3/uL (1.2-4.9); Lymphocytes Percent Auto 31.8 % (20-40); Mean Corpuscular Volume 87.8 fL (80.0-98.0); Mean Platelet Volume 9.1 fL (9.4-12.4); Monocytes Percent Auto 6.5 % (2-11); Platelet Count 348 X10*3/uL (160-400); Red Blood Count 4.75 X10*6/uL (4.60-5.80)
[2022-03-04 19:49] LABS: Alanine Aminotransferase 17 U/L (0-40); Albumin Level 4.4 g/dL (3.5-5.0); Alkaline Phosphatase 94 U/L (39-117); Anion Gap 14 (12-20); Aspartate Amino Transferase 30 U/L (5-37); Bilirubin Direct 0.3 mg/dL (0.0-0.5); Bilirubin Total 0.8 mg/dL (0.0-1.0); Blood Urea Nitrogen 9 mg/dL (9-16); Calcium 9.3 mg/dL (8.4-10.2); Carbon Dioxide 27 mmol/L (22-29); Chloride 102 mmol/L (96-108); Creatinine Clr Calc Pharmacy 72.4; Estimated Glomerular Filt Rate > 60; Glucose Random 105 mg/dL (60-115); Lipase 14 U/L (8-78); Potassium 3.9 mmol/L (3.3-5.1); Sodium 139 mmol/L (135-145); Total Protein 7.5 g/dL (6.5-8.0)
[2022-03-04 19:53] LABS: SLIDE REVIEW VERIFIED
[2022-03-04] MEDS: iohexoL 350 MG/ML 100 ML INFUS..BTL IV (20:08)
== END 2022-03-04 22:12 | disposition home or self-care (01) ==
PROVIDERS: Physician Assistant; Physician Assistant Medical; Emergency Provider Emergency Medicine; PCP Nurse Practitioner Family
DX: S01.112A Laceration without foreign body of left eyelid and periocular area, initial encounter (principal); R10.31 Right lower quadrant pain; J44.9 Chronic obstructive pulmonary disease, unspecified; Z79.82 Long term (current) use of aspirin; Z20.822 Contact with and (suspected) exposure to COVID-19; Y04.2XXA Assault by strike against or bumped into by another person, initial encounter; Y93.9 Activity, unspecified; Y92.9 Unspecified place or not applicable; Y99.0 Civilian activity done for income or pay
CPT/HCPCS: 12011; 36415; 70450; 70486; 71250; 72125; 74177; 80048; 80076; 83690; 85025; 87635; 90471; 90715; 99282; 99284; Q9967

== ENCOUNTER 2024-03-15 09:52 | Outpatient (AMB) | payer OTHER, SELFPAY ==
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
[2024-03-15 09:56] VITALS: BP 122/78; PULSE 71; O2SAT 96; BMI 26.1
== END 2024-03-15 11:05 | disposition home or self-care (01) ==
PROVIDERS: PCP Internal Medicine; Visit Provider Internal Medicine
DX: Z00.00 Encounter for general adult medical examination without abnormal findings (principal); J44.9 Chronic obstructive pulmonary disease, unspecified; E78.00 Pure hypercholesterolemia, unspecified; H61.23 Impacted cerumen, bilateral; F17.200 Nicotine dependence, unspecified, uncomplicated; E66.3 Overweight; Z12.11 Encounter for screening for malignant neoplasm of colon
CPT/HCPCS: 99386

== ENCOUNTER 2024-03-19 08:08 | Emergency (ER) | payer OTHER, SELFPAY ==
[2024-03-19 08:13] VITALS: BP 135/84; PULSE 62; RESP 16; TEMP 36.4; O2SAT 97; BMI 27.4
--- NOTE | 2024-03-19 08:30 | PC.NURSE ---
patient reports 8/10 right ear pain secondary to wax build up. he reports that his primary saw him earlier this week and may have pushed the wax further in. He used debrox and a heating pad without relief of symptoms. He reports he is trying to find an ENT to see since this is a recurring problem
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
[2024-03-19] MEDS: Docusate Sodium 100 MG/10 ML LIQUID PO (10:02)
[2024-03-19 10:10] VITALS: BP 116/60; PULSE 56; RESP 16; TEMP 36.6; O2SAT 96
[2024-03-19 11:28] VITALS: BP 138/81; PULSE 54; RESP 16; TEMP 36.3; O2SAT 98
[2024-03-19 11:30] VITALS: BP 138/81; PULSE 54; RESP 16; TEMP 36.3; O2SAT 98
== END 2024-03-19 11:31 | disposition home or self-care (01) ==
PROVIDERS: Emergency Provider Emergency Medicine Emergency Medical Services; PCP Internal Medicine
DX: H61.23 Impacted cerumen, bilateral (principal); H92.03 Otalgia, bilateral
CPT/HCPCS: 69210; 99284

== ENCOUNTER 2024-03-21 13:44 | Outpatient (AMB) | payer OTHER, SELFPAY ==
[2024-03-21 13:45] VITALS: BP 142/78; PULSE 69; TEMP 36.4; O2SAT 94; BMI 26.3
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
== END 2024-03-21 14:36 | disposition home or self-care (01) ==
PROVIDERS: PCP Internal Medicine; Visit Provider Registered Nurse Emergency
DX: H61.21 Impacted cerumen, right ear (principal)
CPT/HCPCS: 99213

== ENCOUNTER 2024-03-25 07:16 | Outpatient (REF) | payer OTHER, SELFPAY ==
[2024-03-25 07:32] LABS: MANUAL DIFF FLAG NO
[2024-03-25 07:50] LABS: Basophils Absolute Auto 0.1 X10*3/uL (0.0-0.2); Basophils Percent Auto 1.2 % (0-2); Eosinophils Absolute Auto 0.4 X10*3/uL (0.0-0.4); Eosinophils Percent Auto 3.4 % (0-4); Hematocrit 44.9 % (42.0-52.0); Hemoglobin 15.4 g/dl (14.0-18.0); Imm Gran Abs Auto 0.03 X10*3/uL (0.00-0.03); Imm Gran Pct Auto 0.3 % (0.0-0.4); Lymphocytes Absolute Auto 3.8 X10*3/uL (1.2-4.9); Lymphocytes Percent Auto 33.5 % (20-40); Mean Corpuscular HGB Conc 34.3 g/dl (31.0-36.0); Mean Corpuscular Hemoglobin 30.6 pg (27.0-33.0); Mean Corpuscular Volume 89.3 fL (80.0-98.0); Mean Platelet Volume 9.3 fL (9.4-12.4); Monocytes Absolute Auto 0.9 X10*3/uL (0.1-1.2); Monocytes Percent Auto 7.7 % (2-11); Neutrophils Absolute Auto 6.1 x10*3/uL (2.0-8.3); Neutrophils Percent Auto 53.9 % (45-73); Platelet Count 377 X10*3/uL (160-400); Red Blood Count 5.03 X10*6/uL (4.60-5.80); Red Cell Distribution Width 13.2 % (11.0-16.0); White Blood Count 11.3 X10*3/uL (4.8-10.8)
[2024-03-25 07:58] LABS: Appearance Urine Clear; Color Urine Yellow; Glucose Urine UA 100 mg/dL (Negative); Leukocyte Esterase Urine Trace (Negative); Nitrite Urine Negative (Negative); Specific Gravity - Urine <= 1.005 (1.005-1.025); UMIC TRIGGER UACC YES; Urine Blood Negative (Negative); Urine Ketones Negative (Negative); Urine Protein Negative (Neg-Trace)
[2024-03-25 08:04] LABS: Bacteria Urine None Seen (None Seen); Hyaline Casts Urine 0-2 /LPF (0-2); RBC Urine 0-2 /HPF (0-2); Squamous Epithelial Cell Urine 0-2 /HPF (0-2); WBC Urine 0-5 /HPF (0-5)
[2024-03-25 18:20] LABS: Alanine Aminotransferase 18 U/L (0-40); Anion Gap 17 (12-20); Aspartate Amino Transferase 16 U/L (5-37); Bilirubin Total 0.6 mg/dL (0.0-1.0); Blood Urea Nitrogen 8 mg/dL (9-16); Calcium 9.6 mg/dL (8.4-10.2); Carbon Dioxide 23 mmol/L (22-29); Chloride 104 mmol/L (96-108); Estimated Glomerular Filt Rate > 60; Glucose Fasting 89 mg/dL (60-99); Potassium 4.1 mmol/L (3.3-5.1); Sodium 140 mmol/L (135-145)
[2024-03-25 18:21] LABS: Albumin Level 4.3 g/dL (3.5-5.0); Alkaline Phosphatase 111 U/L (39-117); Cholesterol 215 mg/dL (<200); HDL Cholesterol 35 mg/dL (>40); LDL Cholesterol Calculated 150 mg/dL (<100); TSH reflex Free T4 2.05 uIU/mL (0.32-4.0); Total Protein 7.3 g/dL (6.5-8.0); Triglycerides 151 mg/dL (<150); Vitamin D 25-OH Total 38.6 ng/mL (>30)
[2024-03-26 02:12] LABS: Folate 10.5 ng/mL (> or = 4.0); Vitamin B12 472 pg/mL (200-900)
== END 2024-03-25 07:17 | disposition home or self-care (01) ==
LOC: HO.LAB 07:16
PROVIDERS: PCP Internal Medicine; Visit Provider Internal Medicine
DX: Z00.00 Encounter for general adult medical examination without abnormal findings (principal); R30.0 Dysuria; E55.9 Vitamin D deficiency, unspecified; E53.8 Deficiency of other specified B group vitamins; E78.00 Pure hypercholesterolemia, unspecified; D64.9 Anemia, unspecified
CPT/HCPCS: 36415; 80053; 80061; 81001; 82306; 82607; 82746; 84153; 84443; 85025

== ENCOUNTER 2024-03-28 06:25 | Outpatient (REF) | payer OTHER, SELFPAY ==
--- NOTE | ~2024-03-28 | XR_ITS ---
EXAMINATION: XR CHEST CLINICAL INFORMATION: Subcutaneous emphysema. COMPARISON: CT chest dated 03/04/2022. TECHNIQUE: 2 views of the chest were obtained. FINDINGS: The lungs are clear. The cardiomediastinal silhouette is normal in size. There is no pleural effusion or pneumothorax. No acute osseous abnormality. XR/XR chest 2V IMPRESSION: No acute cardiopulmonary findings.
== END 2024-03-28 06:26 | disposition home or self-care (01) ==
LOC: HO.XRAY 06:25
PROVIDERS: PCP Internal Medicine; Visit Provider Internal Medicine
DX: T81.82XA Emphysema (subcutaneous) resulting from a procedure, initial encounter (principal)
CPT/HCPCS: 71046

== ENCOUNTER 2024-04-25 14:43 | Outpatient (AMB) | payer OTHER, SELFPAY ==
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
[2024-04-25 14:45] VITALS: BP 132/82; PULSE 65; O2SAT 96; BMI 26.4
== END 2024-04-25 16:21 | disposition home or self-care (01) ==
PROVIDERS: PCP Internal Medicine; Visit Provider Internal Medicine
DX: G43.909 Migraine, unspecified, not intractable, without status migrainosus (principal)
CPT/HCPCS: 99214; G2211

== ENCOUNTER 2024-07-01 13:33 | Outpatient (AMB) | payer OTHER, SELFPAY ==
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
[2024-07-01 13:39] VITALS: BP 132/70; PULSE 73; O2SAT 95; BMI 25.5
== END 2024-07-01 14:27 | disposition home or self-care (01) ==
PROVIDERS: PCP Internal Medicine; Visit Provider Internal Medicine
DX: M25.512 Pain in left shoulder (principal); E78.00 Pure hypercholesterolemia, unspecified; J44.9 Chronic obstructive pulmonary disease, unspecified; F17.200 Nicotine dependence, unspecified, uncomplicated; E66.3 Overweight

== ENCOUNTER → 2024-07-01 13:33 | Outpatient (BNVA) | payer OTHER, SELFPAY | PROVIDERS: PCP Internal Medicine; Visit Provider Internal Medicine | DX: M25.512 Pain in left shoulder (principal); E78.00 Pure hypercholesterolemia, unspecified; J44.9 Chronic obstructive pulmonary disease, unspecified; E66.3 Overweight; F17.200 Nicotine dependence, unspecified, uncomplicated; Z71.6 Tobacco abuse counseling | CPT/HCPCS: 99212 ==

== ENCOUNTER 2024-09-19 10:44 | Outpatient (REF) | payer OTHER, SELFPAY ==
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
--- NOTE | ~2024-09-19 | XR_ITS ---
EXAMINATION: XR SHOULDER, LEFT CLINICAL INFORMATION: M25.512 - Pain in left shoulder COMPARISON: August 09, 2014 TECHNIQUE: AP external rotation, Grashey, scapular Y, and axillary views of the left shoulder. FINDINGS: Old traumatic deformity distal left clavicle at the acromioclavicular joint. No acute cortical disruption or malalignment. No lytic or blastic lesions. XR/XR shoulder LT min 2V IMPRESSION: No acute fracture or dislocation. Old traumatic deformity left acromioclavicular joint/distal clavicle. Electronically signed by: Gerber Domingo MD 09/19/2024 11:45 AM EST
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
== END 2024-09-19 10:45 | disposition home or self-care (01) ==
LOC: HO.XRAY 10:44
PROVIDERS: PCP Internal Medicine; Visit Provider Internal Medicine
DX: M25.512 Pain in left shoulder (principal); Z87.81 Personal history of (healed) traumatic fracture
CPT/HCPCS: 73000; 73030

== ENCOUNTER → 2024-09-19 10:55 | Outpatient (BNV) | payer OTHER, SELFPAY | PROVIDERS: PCP Internal Medicine; Visit Provider Radiology Diagnostic Radiology | DX: S42.031S Displaced fracture of lateral end of right clavicle, sequela (principal) | CPT/HCPCS: 73000; 73030 ==

== ENCOUNTER 2024-09-20 07:56 | Emergency (ER) | payer OTHER, SELFPAY ==
--- NOTE | 2024-09-20 07:59 | ECG_ITS ---
Test Reason : CHEST PAIN Blood Pressure : */* mmHG Vent. Rate : 72 BPM Atrial Rate : 72 BPM P-R Int : 154 ms QRS Dur : 76 ms QT Int : 348 ms P-R-T Axes : 66 64 64 degrees QTcB Int : 381 ms Normal sinus rhythm Nonspecific T wave abnormality Abnormal ECG When compared with ECG of 30-Jul-2021 09:18, No significant change was found Referred By: Generic ED Physician Electronically Signed By: Robles Farley
[2024-09-20 08:05] VITALS: BP 134/86; PULSE 78; RESP 20; TEMP 36.8; O2SAT 96; BMI 27.5
[2024-09-20 08:37] LABS: MANUAL DIFF FLAG NO
[2024-09-20 08:43] LABS: Basophils Absolute Auto 0.2 X10*3/uL (0.0-0.2); Basophils Percent Auto 1.4 % (0-2); Eosinophils Absolute Auto 0.4 X10*3/uL (0.0-0.4); Eosinophils Percent Auto 3.6 % (0-4); Hematocrit 45.1 % (42.0-52.0); Hemoglobin 15.8 g/dl (14.0-18.0); Imm Gran Abs Auto 0.04 X10*3/uL (0.00-0.03); Imm Gran Pct Auto 0.4 % (0.0-0.4); Lymphocytes Absolute Auto 3.8 X10*3/uL (1.2-4.9); Lymphocytes Percent Auto 36.2 % (20-40); Mean Corpuscular Hemoglobin 30.4 pg (27.0-33.0); Mean Corpuscular Volume 86.7 fL (80.0-98.0); Mean Platelet Volume 8.8 fL (9.4-12.4); Monocytes Absolute Auto 0.8 X10*3/uL (0.1-1.2); Monocytes Percent Auto 7.9 % (2-11); Neutrophils Absolute Auto 5.4 x10*3/uL (2.0-8.3); Neutrophils Percent Auto 50.5 % (45-73); Platelet Count 400 X10*3/uL (160-400); Red Cell Distribution Width 13.2 % (11.0-16.0); White Blood Count 10.6 X10*3/uL (4.8-10.8)
[2024-09-20 09:01] LABS: Alanine Aminotransferase 23 U/L (0-40); Albumin Level 4.2 g/dL (3.5-5.0); Alkaline Phosphatase 118 U/L (39-117); Anion Gap 9 (12-20); Aspartate Amino Transferase 21 U/L (5-37); Bilirubin Total 0.3 mg/dL (0.0-1.0); Blood Urea Nitrogen 9 mg/dL (9-16); Carbon Dioxide 27 mmol/L (22-29); Chloride 107 mmol/L (96-108); Creatinine Clr Calc Pharmacy 88.7; Estimated Glomerular Filt Rate > 60; Glucose Random 66 mg/dL (60-115); Potassium 4.3 mmol/L (3.3-5.1); Sodium 139 mmol/L (135-145); Total Protein 7.6 g/dL (6.5-8.0)
[2024-09-20 09:09] LABS: Troponin-I High Sensitivity < 2.7 ng/L (<3.5-35.0)
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
[2024-09-20 10:30] VITALS: BP 140/82; PULSE 69; RESP 18; TEMP 36.4; O2SAT 97
[2024-09-20 11:11] LABS: Troponin-I High Sensitivity < 2.7 ng/L (<3.5-35.0)
[2024-09-20 11:13] LABS: D Dimer High Sensitivity < 150 NG/ML
[2024-09-20 11:44] VITALS: BP 140/82; PULSE 69; RESP 18; TEMP 36.4; O2SAT 97
== END 2024-09-20 11:44 | disposition home or self-care (01) ==
PROVIDERS: Emergency Provider Emergency Medicine; PCP Internal Medicine
DX: M54.12 Radiculopathy, cervical region (principal); E78.00 Pure hypercholesterolemia, unspecified; J44.9 Chronic obstructive pulmonary disease, unspecified; F17.210 Nicotine dependence, cigarettes, uncomplicated
CPT/HCPCS: 36415; 80053; 84484; 85025; 85379; 93005; 99283; 99284

== ENCOUNTER → 2024-09-20 07:59 | Outpatient (BNV) | payer OTHER, SELFPAY | PROVIDERS: Emergency Provider Emergency Medicine; PCP Internal Medicine; Visit Provider Internal Medicine Cardiovascular Disease | DX: R94.31 Abnormal electrocardiogram [ECG] [EKG] (principal) | CPT/HCPCS: 93010 ==

== ENCOUNTER 2025-02-03 00:41 | Inpatient (IN) | payer MEDICAID, SELFPAY ==
[2025-02-03] VITALS (12 sets, daily range): BP systolic 119–139; BP diastolic 60–85; PULSE 54–78; RESP 16–20; TEMP 36.3–37.7; O2SAT 92–98; BMI 25.8
--- NOTE | ~2025-02-03 | CT_ITS ---
CLINICAL HISTORY: LLW pain, TTP CT Abdomen and Pelvis W Contrast COMPARISON: CT - CT ABDOMEN PELVIS W CON - 03/04/22 20:03 EDT FINDINGS: Centrilobular emphysematous changes in the lower lungs. Small hiatal hernia. Normal liver. Normal spleen. Nonobstructing right renal calculus. No visible ureteral calculi. Unremarkable left kidney. No hydronephrosis. Normal adrenal glands. Normal pancreas. No visible cholelithiasis. No biliary dilation. Colonic diverticulosis. Thickening of the coombs of the sigmoid colon in an area of diverticular disease, with adjacent fat stranding. Peripherally enhancing suspected abscess in the posterior wall of the sigmoid colon measuring 2.1 x 1.3 x 2.0 cm (series 3, image 63). No evidence of bowel obstruction. Focal thickening of the coombs of the 2nd segment of the duodenum. No pneumatosis. Normal appendix. Unremarkable bladder. No ascites. No pneumoperitoneum. No lymphadenopathy. No acute fracture. Degenerative changes in the spine. No abdominal aortic aneurysm. Atherosclerosis. IMPRESSION: Findings consistent with sigmoid diverticulitis with associated intramural abscess. Duodenal wall thickening, which could be due to an infectious or inflammatory process, underdistention, or ulcer disease. Nonemergent/incidental findings above. This document has been electronically signed by: Ronnie Stephenson MD on 02/03/2025 04:47:01
--- OUTSIDE RECORDS SUMMARY | 2025-02-03 01:11 | XMS_ITS | Clinical Summary ---
Author Organization Mobile Location, [facility] Address [address] [place] [address] [address] [place] [address] Care Team Providers Care Multicut Line Operator Name Role Phone Unavailable Primary Care Provider Unavailabl e Allergies Active Allergy Reactions Criticality Noted Date Comments Penicillins Unknown 07/15/2024 Medications No known medications Active Problems No known active problems Social History Tobacco Use Types Packs/Day Years Used Date Smoking Tobacco: Every Day Cigarettes Tobacco Cessation:Ready to Q uit: Not Asked; Counseling Given: Not Answered Sex and Gender Information Value Date Recorded Sex Assigned at Male 07/07/2022 10:18 AM EDT Legal Sex Male 10:18 AM EDT Gender Identity Male 07/07/2022 10:18 AM EDT Sexual Orientation Choose not to disclose 2021 10:18 AM EDT Last Filed Vital Signs Vital Sign Reading Time Taken Comments Blood Pressure 118/79 03/11/2022 12:07 AM EDT Pulse 64 03/11/2022 12:07 AM EDT Temperature - - Respiratory Rate - - Oxygen Saturation - - Inhaled Oxygen Concentration - - Weight 69.3 kg (152 lb 12.7 oz) 022 12:07 AM EDT Height 165.1 cm (5' 5 ) 03/11/2022 12:0 7 AM EDT Body Mass Index 25.43 03/11/2022 12:07 AM EDT Plan of Treatment Health Maintenance Due Date Last Done Comments CT Colonography 1970 Colonoscopy 1970 Colorectal Cancer Screening 1970 Depression Screening 1970 FIT DNA/Cologuard 1970 FIT 1970 FOBT 1970 HIV Screening 1970 Lipid Panel 1970 SDOH Screening 1970 Sigmoidoscopy 1970 Disability Screening 1970 Alcohol/Substance Use Screening 1982 Hepatitis C Screening 1988 Hepatitis B Vaccines (1 of 3 - 19+ 3-dose series) 1989 Pneumococcal Vaccine: 50+ Ye ars (1 of 2 - PCV) 1989 Zoster Vaccines (1 of 2) 2020 COVID-19 Vaccine (1 - 2023-2 5 season) 2024 Influenza Vaccine (#1) 2024 Tobacco Screening 07/18/2025 07/18/2024 DTaP/Tdap/Td Vaccines (2 - T d or Tdap) 03/04/2032 03/04/2022 RSV Patients and Pa tients Aged 60 years or older (1 - 1-dose 75+ series) 2045 HIB Vaccines Aged Out No longer eligi ble based on patient's age to complete this topic HPV Vaccines Aged Out No longer eligi ble based on patient's age to complete this topic Hepatitis A Vaccines Aged Out No long er eligible based on patient's age to complete this topic IPV Vaccines Aged Out No longer eligi ble based on patient's age to complete this topic Meningococcal B Vaccine Aged Out No l onger eligible based on patient's age to complete this topic Meningococcal Vaccine Aged Out No christian tianna eligible based on patient's age to complete this topic RSV under 20 months Aged Out No longe r eligible based on patient's age to complete this topic Rotavirus Vaccines Aged Out No longer eligible based on patient's age to complete this topic Insurance [facility]
--- NOTE | 2025-02-03 01:44 | MHC.EDTECH ---
blood drawn and sent to lab .
[2025-02-03 01:45] LABS: MANUAL DIFF FLAG NO
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
[2025-02-03 01:49] LABS: Basophils Absolute Auto 0.1 X10*3/uL (0.0-0.2); Eosinophils Absolute Auto 0.5 X10*3/uL (0.0-0.4); Eosinophils Percent Auto 3.5 % (0-4); Hematocrit 41.7 % (42.0-52.0); Hemoglobin 14.4 g/dl (14.0-18.0); Imm Gran Abs Auto 0.04 X10*3/uL (0.00-0.03); Imm Gran Pct Auto 0.3 % (0.0-0.4); Lymphocytes Absolute Auto 3.1 X10*3/uL (1.2-4.9); Lymphocytes Percent Auto 23.1 % (20-40); Mean Corpuscular HGB Conc 34.5 g/dl (31.0-36.0); Mean Corpuscular Hemoglobin 30.1 pg (27.0-33.0); Mean Corpuscular Volume 87.2 fL (80.0-98.0); Monocytes Absolute Auto 1.2 X10*3/uL (0.1-1.2); Monocytes Percent Auto 9.1 % (2-11); Neutrophils Absolute Auto 8.5 x10*3/uL (2.0-8.3); Platelet Count 326 X10*3/uL (160-400); Red Blood Count 4.78 X10*6/uL (4.60-5.80); Red Cell Distribution Width 13.3 % (11.0-16.0); White Blood Count 13.5 X10*3/uL (4.8-10.8)
--- NOTE | 2025-02-03 02:08 | MHC.EDTECH ---
0200 rounding done ,vitals taken ,Patient urine sample colleted and sent to lab .
[2025-02-03 02:13] LABS: Appearance Urine Clear; Color Urine Yellow; Glucose Urine UA Negative (Negative); Leukocyte Esterase Urine Negative (Negative); Nitrite Urine Negative (Negative); PH 5.5 (5.0-9.0); Urine Blood Negative (Negative); Urine Ketones Negative (Negative); Urine Protein Negative (Neg-Trace)
[2025-02-03 02:17] LABS: Alanine Aminotransferase 17 U/L (0-40); Albumin Level 3.8 g/dL (3.5-5.0); Anion Gap 14 (12-20); Aspartate Amino Transferase 25 U/L (5-37); Bilirubin Total 0.3 mg/dL (0.0-1.0); Blood Urea Nitrogen 12 mg/dL (9-16); Calcium 9.3 mg/dL (8.4-10.2); Carbon Dioxide 26 mmol/L (22-29); Chloride 106 mmol/L (96-108); Creatinine Clr Calc Pharmacy 74.9; Estimated Glomerular Filt Rate > 60; Glucose Random 116 mg/dL (60-115); Lipase 26 U/L (8-78); Potassium 4.3 mmol/L (3.3-5.1); Sodium 142 mmol/L (135-145); Total Protein 6.6 g/dL (6.5-8.0)
[2025-02-03] MEDS: ondansetron HCL 4 MG/2 ML VIAL IVPUSH ×2 (02:17→22:12)
[2025-02-03] MEDS: 0.9 % Sodium Chloride 1,000 ML 999 ML IV (02:18)
[2025-02-03] MEDS: Morphine Sulfate 4 MG/ML CARTRIDGE IVPUSH ×5 (02:18→22:12)
[2025-02-03 03:27] LABS: Alkaline Phosphatase 100 U/L (39-117)
--- NOTE | 2025-02-03 04:28 | MHC.EDTECH ---
0400 rounding done ,vitals taken Patient resting quietly with eyes closed .Call danielson within Pt reach .
[2025-02-03] MEDS: 0.9 % Sodium Chloride 1,000 ML 999 ML IVCONT (05:25)
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
[2025-02-03] MEDS: metroNIDAZOLE/NS 500 MG/100 ML PIGGYBACK 100 MG IV ×3 (05:59→17:48)
--- NOTE | 2025-02-03 06:02 | MHC.EDTECH ---
lactic acid and both sets of blood culture drawn and sent to lab ,vitals taken ,and Patient belongings list done .
[2025-02-03 06:13] LABS: Lactic Acid 0.7 mmol/L (0.5-2.0)
[2025-02-03] MEDS: Lactated Ringers 1,000 ML 100 ML IVCONT ×2 (06:49→16:21)
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
--- NOTE | 2025-02-03 08:26 | PHA.MEDREC ---
Addendum entered by Huy Chu [facility] 02/03/25 08:35: MED REC CHECKED BY [facility] Original Note: Pharmacy Consult ? Medication Reconciliation Pharmacy has completed the medication reconciliation. Patient states he isn't on any home meds.
--- NOTE | 2025-02-03 09:09 | MHC.CM.PN ---
PT REPORTS HE LIVES ALONE AND IS INDEPENDENT WITH ALL CARE HE HAS NO DME AND NO SERVICES DECLINES A HCP PCP: YANIRA PEARSON PT IS AWARE HIS INSURANCE IS COMING UP INACTIVE AND A REFERRAL HAS BEEN SENT TO [facility] FS DCP: HOME VIA SELF TRANSPORT
[2025-02-03] MEDS: Nicotine 21 MG PATCH.TD24 TRANSDERMA (11:21)
[2025-02-03] MEDS: 0.9 % Sodium Chloride Flush 3 ML SYRINGE IVFLUSH (22:13)
[2025-02-04] MEDS: metroNIDAZOLE/NS 500 MG/100 ML PIGGYBACK 100 MG IV ×5 (01:00→23:38)
[2025-02-04] MEDS: Lactated Ringers 1,000 ML 100 ML IVCONT ×3 (03:36→23:38)
[2025-02-04 03:38] VITALS: BP 115/56; PULSE 65; RESP 16; TEMP 37.3; O2SAT 92
[2025-02-04 07:24] VITALS: BP 121/68; PULSE 64; RESP 14; TEMP 36.7; O2SAT 96
[2025-02-04 07:47] LABS: MANUAL DIFF FLAG NO
[2025-02-04 07:52] LABS: Basophils Absolute Auto 0.1 X10*3/uL (0.0-0.2); Basophils Percent Auto 0.9 % (0-2); Eosinophils Absolute Auto 0.3 X10*3/uL (0.0-0.4); Eosinophils Percent Auto 2.1 % (0-4); Hematocrit 40.2 % (42.0-52.0); Hemoglobin 13.4 g/dl (14.0-18.0); Imm Gran Abs Auto 0.06 X10*3/uL (0.00-0.03); Imm Gran Pct Auto 0.5 % (0.0-0.4); Lymphocytes Absolute Auto 2.7 X10*3/uL (1.2-4.9); Lymphocytes Percent Auto 22.9 % (20-40); Mean Corpuscular HGB Conc 33.3 g/dl (31.0-36.0); Mean Corpuscular Hemoglobin 29.9 pg (27.0-33.0); Mean Corpuscular Volume 89.7 fL (80.0-98.0); Mean Platelet Volume 9.5 fL (9.4-12.4); Monocytes Absolute Auto 0.8 X10*3/uL (0.1-1.2); Monocytes Percent Auto 6.6 % (2-11); Platelet Count 313 X10*3/uL (160-400); Red Blood Count 4.48 X10*6/uL (4.60-5.80); Red Cell Distribution Width 13.2 % (11.0-16.0)
[2025-02-04 08:10] LABS: Anion Gap 12 (12-20); Blood Urea Nitrogen 8 mg/dL (9-16); Calcium 8.7 mg/dL (8.4-10.2); Carbon Dioxide 28 mmol/L (22-29); Chloride 103 mmol/L (96-108); Creatinine Clr Calc Pharmacy 88.5; Estimated Glomerular Filt Rate > 60; Glucose Random 120 mg/dL (60-115); Potassium 3.8 mmol/L (3.3-5.1); Sodium 139 mmol/L (135-145)
[2025-02-04] MEDS: 0.9 % Sodium Chloride Flush 3 ML SYRINGE IVFLUSH ×2 (08:55→15:03)
[2025-02-04] MEDS: ondansetron HCL 4 MG/2 ML VIAL IVPUSH ×2 (08:57→22:34)
[2025-02-04 08:59] VITALS: RESP 16
[2025-02-04] MEDS: Morphine Sulfate 4 MG/ML CARTRIDGE IVPUSH ×2 (08:59→22:35)
[2025-02-04] MEDS: Heparin Sodium,Porcine 5,000 UNIT/ML VIAL 5000 UNIT SUBCUT ×2 (09:03→17:48)
[2025-02-04] MEDS: levoFLOXacin/D5W 500 MG/100 ML PIGGYBACK 100 MG IV (09:05)
[2025-02-04] MEDS: Nicotine 21 MG PATCH.TD24 TRANSDERMA (09:12)
--- NOTE | 2025-02-04 10:10 | PM.PNGS ---
Subjective Subjective Date of Service: 02/04/25 Interval history: still has pain but better says he feels improved overall passing flatus, had BM no fever Physical Exam Vital Signs: Vital Signs: Last Vital Signs Temp 98.1 F 02/04/25 07:24 Pulse 64 02/04/25 07:24 Resp 16 02/04/25 08:59 BP 121/68 02/04/25 07:24 Pulse Ox 96 02/04/25 07:24 O2 Del Method Room Air 02/04/25 07:24 BMI result Body Mass Index 25.8 Const: General: comfortable and no acute distress Resp: Effort & Inspection: normal respiratory effort Cardio: Rate: regular rate GI: Palpation (GI): Soft to palpation, not firm, Tenderness to palpation present (GI) (mild tenderness LLQ) and no guarding Objective Data Active Medications Acetaminophen (Acetaminophen 325 Mg Tablet) 650 mg PO Q6H PRN PRN Reason: Pain, Mild 1-3,fever,headache Calcium Carbonate (Calcium Carbonate 750 Mg Tab.Chew) 750 mg PO Q4H PRN PRN Reason: Heartburn Heparin Sodium (Porcine) (Heparin Sodium,Porcine 5,000 Unit/Ml Vial) 5,000 unit SUBCUT Q8H [facility] Last Admin: 02/04/25 09:03 Dose: 5,000 unit Documented By: LELA Lactated Ringer's (Lr) 1,000 mls @ 100 mls/hr IVCONT .Q10H [facility] Last Admin: 02/04/25 03:36 Dose: 100 mls/hr Documented By: ELVI Levofloxacin (Levaquin) 500 mg in 100 mls @ 100 mls/hr IV Q24H [facility] Last Admin: 02/04/25 09:05 Dose: 100 mls/hr Documented By: LELA Metronidazole (Flagyl) 500 mg in 100 mls @ 100 mls/hr IV Q6H [facility] Last Infusion: 02/04/25 07:29 Dose: Infused Documented By: LELA Melatonin (Melatonin 3 Mg Tablet) 6 mg PO BEDTIME PRN PRN Reason: Insomnia Morphine Sulfate (Morphine Sulfate 4 Mg/Ml Cartridge) 4 mg IVPUSH Q4H PRN; Protocol PRN Reason: Pain, Severe (Pain Scale 7-10) Last Admin: 02/04/25 08:59 Dose: 4 mg Documented By: LELA Nicotine (Nicotine 21 Mg Patch.Td24) 21 mg TRANSDERMA DAILY [facility] Last Admin: 02/04/25 09:12 Dose: 21 mg Documented By: LELA Ondansetron HCl (Ondansetron Hcl 4 Mg/2 Ml Vial) 4 mg IVPUSH Q8H PRN PRN Reason: Nausea and Vomiting Last Admin: 02/04/25 08:57 Dose: 4 mg Documented By: LELA Sodium Chloride (0.9 % Sodium Chloride Flush 3 Ml Syringe) 3 ml IVFLUSH QSHIFT [facility] Last Admin: 02/04/25 08:55 Dose: 3 ml Documented By: LELA Labs 02/04/25 07:11 02/04/25 07:11 Labs: Laboratory Results - last 24 hr 02/04/25 07:11 MCV 89.7 MCH 29.9 MCHC 33.3 RDW 13.2 Plt Count 313 MPV 9.5 Immature Gran % (Auto) 0.5 H Neut % (Auto) 67.0 Lymph % (Auto) 22.9 Davison % (Auto) 6.6 Eos % (Auto) 2.1 Baso % (Auto) 0.9 Lymph # (Auto) 2.7 [place] # (Auto) 0.8 Eos # (Auto) 0.3 Baso # (Auto) 0.1 Abs Immat Gran (auto) 0.06 H Absolute Neuts (auto) 8.0 Absolute Nucleated RBC 0.000 Nucleated RBC % (auto) 0.0 Anion Gap 12 Estim Creat Clear Calc 88.5 Estimated GFR > 60 Random Glucose 120 H Calcium 8.7 D Microbiology Microbiology Results: Microbiology 02/03/25 05:47 Blood Culture - Preliminary Blood - Venous No growth after 24 hours. 02/03/25 05:37 Blood Culture - Preliminary Blood - Venous No growth after 24 hours. Procedures Date of Service Date of Service: 02/04/25 Progress Note: A&P Assessment and plan (1) Diverticulitis of intestine with abscess: Status: Acute Assessment and Plan: clinically improving WBC down abd remains soft says he still has pain although better will keep on clears IV abx ambulate Time Spent With Patient Time: Total time managing care of this patient today ____ minutes. Quality Stroke Does the patient have a stroke diagnosis?: No VTE Prior VTE?: No VTE Risk Level:: Medical - moderate - high VTE Device Contraindication: N/A - Device Ordered VTE Drug Contraindication: N/A - Med Ordered
[2025-02-04] MEDS: Calcium Carbonate 750 MG TAB.CHEW PO (12:20)
[2025-02-04] MEDS: Acetaminophen 325 MG TABLET 650 MG PO (12:20)
[2025-02-04 15:10] VITALS: BP 132/80; PULSE 64; RESP 14; TEMP 36.8; O2SAT 96
[2025-02-04 19:40] VITALS: BP 138/67; PULSE 60; RESP 18; TEMP 37.4; O2SAT 94
[2025-02-05] MEDS: Heparin Sodium,Porcine 5,000 UNIT/ML VIAL 5000 UNIT SUBCUT ×3 (01:07→17:00)
[2025-02-05 03:37] VITALS: BP 135/72; PULSE 51; RESP 16; TEMP 37.1; O2SAT 94
[2025-02-05] MEDS: metroNIDAZOLE/NS 500 MG/100 ML PIGGYBACK 100 MG IV ×4 (05:53→23:25)
[2025-02-05 07:40] VITALS: BP 136/80; PULSE 60; RESP 16; TEMP 37.1; O2SAT 94
[2025-02-05] MEDS: levoFLOXacin/D5W 500 MG/100 ML PIGGYBACK 100 MG IV (08:41)
[2025-02-05] MEDS: Nicotine 21 MG PATCH.TD24 TRANSDERMA (08:42)
[2025-02-05] MEDS: Acetaminophen 325 MG TABLET 650 MG PO ×2 (08:42→23:32)
--- NOTE | 2025-02-05 11:56 | P.PNGS_ITS ---
Subjective Subjective Date of Service: 02/06/25 Interval history: He states that he feels much better Minimal pain on the left lower quadrant Hungry and wants to eat Passing flatus Tolerating clear liquids Physical Exam 2 Vital Signs: Vital Signs: Last Vital Signs Temp 98.8 F 02/05/25 07:40 Pulse 60 02/05/25 07:40 Resp 16 02/05/25 07:40 BP 136/80 02/05/25 07:40 Pulse Ox 94 02/05/25 07:40 O2 Del Method Room Air 02/05/25 07:40 BMI result Body Mass Index 25.8 Const: Other: Ambulating well General: comfortable and no acute distress Resp: Effort & Inspection: normal respiratory effort Cardio: Rate: regular rate GI: Palpation (GI): Soft to palpation, not firm, nontender and no guarding Objective Data Active Medications Acetaminophen (Acetaminophen 325 Mg Tablet) 650 mg PO Q6H PRN PRN Reason: Pain, Mild 1-3,fever,headache Last Admin: 02/05/25 08:42 Dose: 650 mg Documented By: LELA Calcium Carbonate (Calcium Carbonate 750 Mg Tab.Chew) 750 mg PO Q4H PRN PRN Reason: Heartburn Last Admin: 02/04/25 12:20 Dose: 750 mg Documented By: LELA Heparin Sodium (Porcine) (Heparin Sodium,Porcine 5,000 Unit/Ml Vial) 5,000 unit SUBCUT Q8H [facility] Last Admin: 02/05/25 08:42 Dose: 5,000 unit Documented By: LELA Levofloxacin (Levaquin) 500 mg in 100 mls @ 100 mls/hr IV Q24H [facility] Last Infusion: 02/05/25 09:41 Dose: Infused Documented By: LELA Metronidazole (Flagyl) 500 mg in 100 mls @ 100 mls/hr IV Q6H [facility] Last Infusion: 02/05/25 07:03 Dose: Infused Documented By: SHIMON Melatonin (Melatonin 3 Mg Tablet) 6 mg PO BEDTIME PRN PRN Reason: Insomnia Morphine Sulfate (Morphine Sulfate 4 Mg/Ml Cartridge) 4 mg IVPUSH Q4H PRN; Protocol PRN Reason: Pain, Severe (Pain Scale 7-10) Last Admin: 02/04/25 22:35 Dose: 4 mg Documented By: HO.ODRISM Nicotine (Nicotine 21 Mg Patch.Td24) 21 mg TRANSDERMA DAILY [facility] Last Admin: 02/05/25 08:42 Dose: 21 mg Documented By: LELA Ondansetron HCl (Ondansetron Hcl 4 Mg/2 Ml Vial) 4 mg IVPUSH Q8H PRN PRN Reason: Nausea and Vomiting Last Admin: 02/04/25 22:34 Dose: 4 mg Documented By: SHIMON Sodium Chloride (0.9 % Sodium Chloride Flush 3 Ml Syringe) 3 ml IVFLUSH QSHIFT [facility] Last Admin: 02/05/25 08:38 Dose: Not Given Documented By: LELA Non-Admin Reason: IV Running Labs 02/04/25 07:11 02/04/25 07:11 Microbiology Microbiology Results: Microbiology 02/03/25 05:47 Blood Culture - Preliminary Blood - Venous No growth after 48 hours. 02/03/25 05:37 Blood Culture - Preliminary Blood - Venous No growth after 48 hours. Procedures Date of Service Date of Service: 02/06/25 Progress Note: A&P Assessment and plan (1) Diverticulitis of intestine with abscess: Status: Acute Assessment and Plan: Continues to do well He has pain No fever No significant tenderness We will advance to regular diet We will keep on IV antibiotics in view of his intramural abscess Overall very benign Possible DC home tomorrow Time Spent With Patient Time: Total time managing care of this patient today ____ minutes. Quality Stroke Does the patient have a stroke diagnosis?: No VTE Prior VTE?: No VTE Risk Level:: Medical - moderate - high VTE Device Contraindication: N/A - Device Ordered VTE Drug Contraindication: N/A - Med Ordered
[2025-02-05 15:23] VITALS: BP 131/56; PULSE 61; RESP 14; TEMP 36.9; O2SAT 94
[2025-02-05] MEDS: 0.9 % Sodium Chloride Flush 3 ML SYRINGE IVFLUSH (16:58)
[2025-02-05 19:48] VITALS: BP 128/60; PULSE 68; RESP 18; TEMP 36.9; O2SAT 94
[2025-02-05] MEDS: Melatonin 3 MG TABLET 6 MG PO (23:32)
[2025-02-06] MEDS: 0.9 % Sodium Chloride Flush 3 ML SYRINGE IVFLUSH ×2 (00:25→07:40)
[2025-02-06] MEDS: Heparin Sodium,Porcine 5,000 UNIT/ML VIAL 5000 UNIT SUBCUT ×2 (00:26→07:41)
[2025-02-06 03:35] VITALS: BP 130/68; PULSE 55; RESP 17; TEMP 36.4; O2SAT 94
[2025-02-06] MEDS: metroNIDAZOLE/NS 500 MG/100 ML PIGGYBACK 100 MG IV (05:11)
--- NOTE | 2025-02-06 07:31 | P.PNGS_ITS ---
Subjective Subjective Date of Service: 02/06/25 <Beth Temple PA-C - Last Filed: 02/06/25 07:36> 02/06/25 <Harry Torres MD - Last Filed: 02/06/25 11:20> Interval history: feels well this morning. Denies any abd pain. Tolerating solid diet. Moving bowels without difficulty. Ambulating. Wants to go home. <Beth Temple PA-C - Last Filed: 02/06/25 07:36> Physical Exam 2 Vital Signs: Vital Signs: Last Vital Signs Temp 97.6 F 02/06/25 03:35 Pulse 55 02/06/25 03:35 Resp 17 02/06/25 03:35 BP 130/68 02/06/25 03:35 Pulse Ox 94 02/06/25 03:35 O2 Del Method Room Air 02/06/25 03:35 BMI result Body Mass Index 25.8 <Beth Temple PA-C - Last Filed: 02/06/25 07:36> Const: General: comfortable, no acute distress and alert <Beth Temple PA-C - Last Filed: 02/06/25 07:36> Orientation/consciousness: patient oriented x3 <STEWART Cabral Last Filed: 02/06/25 07:36> Resp: Effort & Inspection: normal respiratory effort <STEWART Cabral Last Filed: 02/06/25 07:36> GI: Inspection: No distended <Beth Temple PA-C - Last Filed: 02/06/25 07:36> Palpation (GI): Soft to palpation, nontender and no guarding <Beth Temple PA-C - Last Filed: 02/06/25 07:36> Skin: General skin exam: no rashes or lesions noted <STEWART Cabral Last Filed: 02/06/25 07:36> Neuro: General: patient oriented x3 and moves all extremities <STEWART Cabral Last Filed: 02/06/25 07:36> Objective Data Active Medications Acetaminophen (Acetaminophen 325 Mg Tablet) 650 mg PO Q6H PRN PRN Reason: Pain, Mild 1-3,fever,headache Last Admin: 02/05/25 23:32 Dose: 650 mg Documented By: ESAU Calcium Carbonate (Calcium Carbonate 750 Mg Tab.Chew) 750 mg PO Q4H PRN PRN Reason: Heartburn Last Admin: 02/04/25 12:20 Dose: 750 mg Documented By: LELA Heparin Sodium (Porcine) (Heparin Sodium,Porcine 5,000 Unit/Ml Vial) 5,000 unit SUBCUT Q8H [facility] Last Admin: 02/06/25 00:26 Dose: 5,000 unit Documented By: ESAU Levofloxacin (Levaquin) 500 mg in 100 mls @ 100 mls/hr IV Q24H [facility] Last Infusion: 02/05/25 09:41 Dose: Infused Documented By: LELA Metronidazole (Flagyl) 500 mg in 100 mls @ 100 mls/hr IV Q6H [facility] Last Infusion: 02/06/25 06:20 Dose: Infused Documented By: ESAU Melatonin (Melatonin 3 Mg Tablet) 6 mg PO BEDTIME PRN PRN Reason: Insomnia Last Admin: 02/05/25 23:32 Dose: 6 mg Documented By: ESAU Morphine Sulfate (Morphine Sulfate 4 Mg/Ml Cartridge) 4 mg IVPUSH Q4H PRN; Protocol PRN Reason: Pain, Severe (Pain Scale 7-10) Last Admin: 02/04/25 22:35 Dose: 4 mg Documented By: SHIMON Nicotine (Nicotine 21 Mg Patch.Td24) 21 mg TRANSDERMA DAILY [facility] Last Admin: 02/05/25 08:42 Dose: 21 mg Documented By: LELA Ondansetron HCl (Ondansetron Hcl 4 Mg/2 Ml Vial) 4 mg IVPUSH Q8H PRN PRN Reason: Nausea and Vomiting Last Admin: 02/04/25 22:34 Dose: 4 mg Documented By: SHIMON Oxycodone HCl (Oxycodone Hcl Immed Release 5 Mg Tablet) 5 mg PO Q4H PRN PRN Reason: Pain, Moderate(Pain Scale 4-6) Sodium Chloride (0.9 % Sodium Chloride Flush 3 Ml Syringe) 3 ml IVFLUSH QSHIFT [facility] Last Admin: 02/06/25 00:25 Dose: 3 ml Documented By: ESAU <Beth Temple PA-C - Last Filed: 02/06/25 07:36> Labs CBC & Chem 7: 02/04/25 07:11 02/04/25 07:11 <Beth Temple PA-C - Last Filed: 02/06/25 07:36> Microbiology Microbiology Results: Microbiology 02/03/25 05:47 Blood Culture - Preliminary Blood - Venous No growth after 48 hours. 02/03/25 05:37 Blood Culture - Preliminary Blood - Venous No growth after 48 hours. <Beth Temple PA-C - Last Filed: 02/06/25 07:36> Procedures Date of Service Date of Service: 02/06/25 <Beth Temple PA-C - Last Filed: 02/06/25 07:36> 02/06/25 <Harry Torres MD - Last Filed: 02/06/25 11:20> Progress Note: A&P Assessment and plan (1) Diverticulitis of intestine with abscess: Status: Acute <Beth Temple PA-C - Last Filed: 02/06/25 07:36> Assessment and Plan: Feels well Tolerating diet No abdominal pain Good GI functions Abdomen is soft and benign Okay to DC home today on oral antibiotics He understands risks of recurrent episodes seen and examined independently <Harry Torres MD - Last Filed: 02/06/25 11:20> Assessment and Plan: Admitted for sigmoid diverticulitis with small intramural abscess. Overall doing well, tolerating solid diet without any symptoms. VSS. Abd exam benign, soft and nontender. Stable for dc to home today. Dc on course of oral levaquin/flagyl. F/u in office in 1 week. Needs repeat colonoscopy down the line. He understands and agrees with plan. <Beth Temple PA-C - Last Filed: 02/06/25 07:36> Time Spent With Patient Time: Total time managing care of this patient today ____ minutes. <STEWART Cabral Last Filed: 02/06/25 07:36> Quality Stroke Does the patient have a stroke diagnosis?: No <STEWART Cabral Last Filed: 02/06/25 07:36> VTE Prior VTE?: No <Beth Temple PA-C - Last Filed: 02/06/25 07:36> VTE Risk Level:: Medical - moderate - high <STEWART Cabral Last Filed: 02/06/25 07:36> VTE Device Contraindication: N/A - Device Ordered <Beth Temple PA-C - Last Filed: 02/06/25 07:36> VTE Drug Contraindication: N/A - Med Ordered <STEWART aCbral Last Filed: 02/06/25 07:36>
[2025-02-06] MEDS: levoFLOXacin/D5W 500 MG/100 ML PIGGYBACK 100 MG IV (07:39)
[2025-02-06] MEDS: Nicotine 21 MG PATCH.TD24 TRANSDERMA (07:40)
[2025-02-06 07:47] VITALS: BP 139/85; PULSE 56; RESP 18; TEMP 36.6; O2SAT 94
--- NOTE | 2025-02-06 08:06 | P.DS_ITS ---
DS: Providers Provider Date of Service: 02/06/25 Date of admission: 02/03/25 05:41 Date of discharge: 02/06/25 Primary care physician: Angel Phipps MD Attending physician on admission: Harry Torres Attending physician on discharge: Harry Torres DS: Diagnosis Discharge Diagnosis (1) Diverticulitis of intestine with abscess: Status: Acute DS: Summary Hospital Course Hospital Course: HPI AT ADMISSION: Marcus Rosario is a 54 year old male with PMH of COPD, smoker, cervical disc disease, hypercholesterolemia who presented to the ED with complaints of abdominal pain. The pain is located in the LLQ and began 2 days ago and has progressively worsened and became severe. The pain radiates to his rectum and he feels pressure. He has been having small bowel movements. He presented to the ED for evaluation where he was found to markedly tender in the LLQ. Work up included CBC, BMP, LFTs and was significant for a leukocytosis of 13.5. CT scan abd/pelvis was obtained which showed wall thickening of the sigmoid colon in an area of diverticular disease with adjacent fat stranding and small peripherally enhancing suspected abscess in the posterior wall of the sigmoid colon. He continues to have pain this morning, maybe mildly improved. He denies similar episodes of pain in the past. He denies fever, chills, nausea, vomiting, hematochezia, melena, hematuria, dysuria, pneumaturia. Last colonoscopy in [address] Mendoza for sigmoid colitis, found to have tubular adenomas with repeat colonoscopy recommended in 3 to 5 years. HOSPITAL COURSE: The patient was admitted to the surgical service for further treatment of the sigmoid diverticulitis with small intramural abscess. He was nontoxic appearing with an overall benign abdominal exam and therefore supportive treatment with IV abx, bowel rest, IVF were recommended. He was started on IV levaquin/flagyl. He remained inpatient for 3 nights for IV abx. His symptoms improved and resolved. His WBC count downtrended. His diet was slowly advanced. On the day of discharge, he had no abdominal pain, had good GI function, was tolerating a solid diet. He was hemodynamically stable with a benign abd exam, soft and nontender. He was discharged to home on 02/06/25 in stable condition. He was discharged on course of oral levaquin and flagyl. He is to follow up in the office in 1 week. He is to have a repeat screening colonosc opy down the line after acute episode resolves. Status at Discharge Functional status at discharge: independent ambulation Overall status at discharge: patient is back to baseline Time Attestation Discharge Coordination Time (in mins): 25 Quality: Safe Use of Opioids Does Pt have an Active Cancer Diagnosis on the Problem List?: No Quality: Stroke Does the patient have a stroke diagnosis?: No Physical Exam Vital Signs: Vital Signs: Last Vital Signs Temp 97.8 F 02/06/25 07:47 Pulse 56 02/06/25 07:47 Resp 18 02/06/25 07:47 BP 139/85 02/06/25 07:47 Pulse Ox 94 02/06/25 07:47 O2 Del Method Room Air 02/06/25 07:47 BMI result Body Mass Index 25.8 Const: General: comfortable, no acute distress and alert Orientation/consciousness: patient oriented x3 Resp: Effort & Inspection: normal respiratory effort GI: Inspection: No distended Palpation (GI): Soft to palpation, nontender and no guarding Skin: General skin exam: no rashes or lesions noted Neuro: General: patient oriented x3 DS: Data Data Completed and Pending Labs on day of discharge: Preliminary micro results at discharge 02/03/25 05:47 Blood Culture - Preliminary Blood - Venous No growth after 48 hours. 02/03/25 05:37 Blood Culture - Preliminary Blood - Venous No growth after 48 hours. Discharge Plan Discharge Anticipated Discharge Date/Time: 02/05/25 14:21 Patient Disposition: Home, Self-Care Discharge Diagnosis: sigmoid diverticulitis with intramural abscess Referrals: Angel Phipps MD [Primary Care Provider] - Harry Torres MD [Physician] - 2 Weeks Discharge Medications: New levofloxacin 500 mg tablet 500 mg PO DAILY Qty: 7 0RF metronidazole 500 mg tablet 500 mg PO TID Qty: 21 0RF nicotine [Nicoderm CQ] 21 mg/24 hr patch 24 hour 1 patch transdermal DAILY Qty: 28 0RF Discharge Orders: Discharge Order (Routine); Ordered 02/06/25 Ordered By: Beth Temple Diet: Advance to usual diet Activity on Discharge: As tolerated Stand Alone Forms: Patient Portal Discharge page Print Language: Ukrainian Activity Restrictions/Additional Instructions: Follow up in office in 2 weeks. ([phone]) Finish your antibiotic course. You are due for a screening colonoscopy and will need this down the line once this episode of diverticulitis resolves. Call Your Doctor If: ? ? -Your temperature exceeds 101.5? F? ? ? -You experience excessive pain or swelling ? ? -You have an unexpected reaction to medication ? ? -You experience continued vomiting/nausea Care Plan Goals: Return to baseline health and resume normal activities. Finish antibiotic course. Health Concerns: sigmoid diverticulitis with intramural abscess COPD, smoker Plan of Treatment: IV antibiotics transitioned to oral abx bowel rest f/u in office colonoscopy down the line Assessment: Improved Patient Instructions: Diverticulitis (ED), Diverticulitis Diet (ED)
--- NOTE | 2025-02-06 10:34 | MHC.CM.PN ---
DC TODAY, HOME WITH NO SERVICES VIA SELF TRANSPORT
== END 2025-02-06 08:59 | disposition home or self-care (01) | DRG 244 ==
LOC: HO.ED 05:02 → HO.EDOVER 05:50 → HO.S3 07:40
PROVIDERS: Nurse Practitioner Family; Admitting Provider Physician Assistant Surgical; Emergency Provider Emergency Medicine; PCP Internal Medicine; Visit Provider Physician Assistant Surgical
DX: K57.20 Diverticulitis of large intestine with perforation and abscess without bleeding (principal); F17.210 Nicotine dependence, cigarettes, uncomplicated; Z71.6 Tobacco abuse counseling; J43.9 Emphysema, unspecified
CPT/HCPCS: 36415; 74177; 80048; 80053; 81003; 83605; 83690; 85025; 87040; 99285; J1644; J1836; J1956; J2270; J2405; J7120

== ENCOUNTER → 2025-02-03 02:02 | Outpatient (BNV) | payer MEDICAID, SELFPAY | PROVIDERS: Emergency Provider Emergency Medicine; PCP Internal Medicine; Visit Provider Radiology Diagnostic Radiology | DX: K31.89 Other diseases of stomach and duodenum (principal) | CPT/HCPCS: 74177 ==

== ENCOUNTER → 2025-02-03 05:41 | Outpatient (BNV) | payer MEDICAID, OTHER, SELFPAY | PROVIDERS: Admitting Provider Physician Assistant Surgical; Emergency Provider Emergency Medicine; PCP Internal Medicine; Visit Provider Physician Assistant Surgical | DX: K57.80 Diverticulitis of intestine, part unspecified, with perforation and abscess without bleeding (principal) | CPT/HCPCS: 99222; 99232 ==

== ENCOUNTER → 2025-02-13 01:39 | Outpatient (BNV) | payer OTHER, SELFPAY | PROVIDERS: Emergency Provider Internal Medicine; PCP Internal Medicine; Visit Provider Radiology Diagnostic Radiology | DX: R06.00 Dyspnea, unspecified (principal) | CPT/HCPCS: 71046 ==

== ENCOUNTER 2025-02-13 01:59 | Emergency (ER) | payer OTHER, SELFPAY ==
[2025-02-13] VITALS (7 sets, daily range): BP systolic 115–139; BP diastolic 70–79; PULSE 74–92; RESP 14–20; TEMP 36.4–36.5; O2SAT 93–97; BMI 26.0
--- NOTE | 2025-02-13 | ECG_ITS ---
Test Reason : SOB Blood Pressure : */* mmHG Vent. Rate : 77 BPM Atrial Rate : 77 BPM P-R Int : 150 ms QRS Dur : 74 ms QT Int : 372 ms P-R-T Axes : 69 79 67 degrees QTcB Int : 420 ms Normal sinus rhythm Low voltage QRS Borderline ECG When compared with ECG of 20-Sep-2024 08:03, No significant change was found Referred By: Generic ED Physician Electronically Signed By: ELIANA MCCOLLUM MD
--- NOTE | ~2025-02-13 | XR_ITS ---
CLINICAL HISTORY: dyspnea wheezing 2 view chest x-ray Comparison: CT/SR - CT ABDOMEN PELVIS W IV CON - 02/03/25 02:26 EDT Findings: Lungs are well inflated. Mediastinal contours, cardiac silhouette, and pulmonary vasculature within normal limits. No focal areas of consolidation. No pleural effusion IMPRESSION: 1. No acute findings. This document has been electronically signed by: Mason Tran MD on 02/13/2025 03:09:20
[2025-02-13 02:25] LABS: MANUAL DIFF FLAG NO
[2025-02-13 02:26] LABS: Basophils Percent Auto 0.6 % (0-2); Eosinophils Absolute Auto 0.1 X10*3/uL (0.0-0.4); Hematocrit 45.2 % (42.0-52.0); Hemoglobin 15.6 g/dl (14.0-18.0); Imm Gran Abs Auto 0.01 X10*3/uL (0.00-0.03); Imm Gran Pct Auto 0.1 % (0.0-0.4); Lymphocytes Absolute Auto 3.4 X10*3/uL (1.2-4.9); Lymphocytes Percent Auto 48.7 % (20-40); Mean Corpuscular HGB Conc 34.5 g/dl (31.0-36.0); Mean Corpuscular Volume 86.9 fL (80.0-98.0); Mean Platelet Volume 9.2 fL (9.4-12.4); Monocytes Absolute Auto 0.6 X10*3/uL (0.1-1.2); Monocytes Percent Auto 9.1 % (2-11); Neutrophils Absolute Auto 2.8 x10*3/uL (2.0-8.3); Neutrophils Percent Auto 39.5 % (45-73); Platelet Count 291 X10*3/uL (160-400); Red Cell Distribution Width 13.7 % (11.0-16.0)
[2025-02-13 02:43] LABS: Alanine Aminotransferase 34 U/L (0-40); Albumin Level 4.4 g/dL (3.5-5.0); Alkaline Phosphatase 84 U/L (39-117); Anion Gap 12 (12-20); Aspartate Amino Transferase 34 U/L (5-37); Bilirubin Total 0.3 mg/dL (0.0-1.0); Blood Urea Nitrogen 6 mg/dL (9-16); Calcium 8.7 mg/dL (8.4-10.2); Carbon Dioxide 26 mmol/L (22-29); Chloride 103 mmol/L (96-108); Creatinine Clr Calc Pharmacy 88.5; Estimated Glomerular Filt Rate > 60; Glucose Random 128 mg/dL (60-115); Lipase 34 U/L (8-78); Sodium 137 mmol/L (135-145); Total Protein 7.3 g/dL (6.5-8.0)
[2025-02-13] MEDS: Albuterol Sulfate 5 MG, Albuterol/Iprat 2.5/0.5MG 3 ML 3 ML INHALE ×2 (02:44→03:42)
[2025-02-13 02:50] LABS: Troponin-I High Sensitivity 2.9 ng/L (<3.5-35.0)
[2025-02-13] MEDS: 0.9 % Sodium Chloride 1,000 ML 999 ML IV (02:55)
[2025-02-13] MEDS: cefTRIAXone sodium 2 GM VIAL IVPUSH (03:02)
[2025-02-13] MEDS: Azithromycin 500 MG in 0.9 % Sodium Chloride 250 ML 125 MG IV (03:02)
[2025-02-13 03:03] LABS: Influenza A PCR NEGATIVE (Negative); Influenza B PCR NEGATIVE (Negative); Resp Syncy Virus RNA Qual PCR NEGATIVE (Negative); SARS COV2 PCR INHOUSE NEGATIVE (Negative)
[2025-02-13 03:21] LABS: Lactic Acid 1.4 mmol/L (0.5-2.0)
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
== END 2025-02-13 06:42 | disposition home or self-care (01) ==
PROVIDERS: Physician Assistant Medical; Emergency Provider Internal Medicine; PCP Internal Medicine
DX: J44.1 Chronic obstructive pulmonary disease with (acute) exacerbation (principal); J44.0 Chronic obstructive pulmonary disease with (acute) lower respiratory infection; J20.9 Acute bronchitis, unspecified; R06.02 Shortness of breath; F17.210 Nicotine dependence, cigarettes, uncomplicated; J44.9 Chronic obstructive pulmonary disease, unspecified; Z03.818 Encounter for observation for suspected exposure to other biological agents ruled out; Z79.899 Other long term (current) drug therapy
CPT/HCPCS: 0241U; 36415; 71046; 80053; 83605; 83690; 83735; 84484; 85025; 86850; 86900; 86901; 87040; 93005; 94640; 96361; 96365; 96366; 96375; 99285; J0456; J0696; J2919

== ENCOUNTER → 2025-02-13 02:20 | Outpatient (BNV) | payer OTHER, SELFPAY | PROVIDERS: Emergency Provider Internal Medicine; PCP Internal Medicine; Visit Provider Internal Medicine Cardiovascular Disease | DX: R06.02 Shortness of breath (principal) | CPT/HCPCS: 93010 ==

== ENCOUNTER 2025-02-17 07:50 | Outpatient (AMB) | payer OTHER, SELFPAY ==
--- OUTSIDE RECORDS SUMMARY | 2025-02-17 07:53 | XMS_ITS | Clinical Summary ---
Author Organization [employer] Address [address] [place] [address] [address] [id number] [address] Care Team Providers Care Pharmacy Service Associate Name Role Phone Unavailable Primary Care Provider [...] - 2023-2 5 season) 2024 Influenza Vaccine (Season Ended) 2025 Tobacco Screening 07/18/2025 07/18/2024 DTaP/Tdap/Td Vaccines (2 [...] patient's age to complete this topic Insurance [facility] [place] [id number]
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
[2025-02-17 07:57] VITALS: BP 100/80; PULSE 74; RESP 18; TEMP 36.2; O2SAT 94; BMI 25.7
== END 2025-02-17 08:28 | disposition home or self-care (01) ==
LOC: HO.HMCH 07:51
PROVIDERS: PCP Internal Medicine; Visit Provider Nurse Practitioner Family
DX: J44.1 Chronic obstructive pulmonary disease with (acute) exacerbation (principal); K57.00 Diverticulitis of small intestine with perforation and abscess without bleeding; F17.200 Nicotine dependence, unspecified, uncomplicated

== ENCOUNTER → 2025-02-17 07:50 | Outpatient (BNVA) | payer OTHER, SELFPAY | PROVIDERS: PCP Internal Medicine; Visit Provider Nurse Practitioner Family | DX: J44.1 Chronic obstructive pulmonary disease with (acute) exacerbation (principal); F17.210 Nicotine dependence, cigarettes, uncomplicated; E78.00 Pure hypercholesterolemia, unspecified; Z87.19 Personal history of other diseases of the digestive system | CPT/HCPCS: 96127; 99495 ==

== ENCOUNTER 2025-07-16 03:05 | Emergency (ER) | payer SELFPAY ==
--- NOTE | ~2025-07-16 | XR_ITS ---
CLINICAL HISTORY: cough 1 view chest x-ray Comparison: CR - XR CHEST 2V - 02/13/25 02:39 EDT Findings: The lungs are clear. No pneumothorax or effusions Heart size is normal. No acute fracture. IMPRESSION: 1. No acute findings. This document has been electronically signed by: Cheko Xavier MD on 07/16/2025 05:22:20
[2025-07-16 03:07] VITALS: BP 125/73; PULSE 71; RESP 18; TEMP 36.3; O2SAT 96; BMI 25.3
[2025-07-16 03:28] LABS: MANUAL DIFF FLAG NO
--- OUTSIDE RECORDS SUMMARY | 2025-07-16 03:28 | XMS_ITS | Clinical Summary ---
Author Organization [facility] Address [address] [place] [address] Care Team Providers Care Order Picker/Assembler Name Role Phone Unavailable Primary Care Provider Unavailabl e Social History Tobacco Use Types Packs/Day Years Used Date Smoking Tobacco: Never Assessed Sex and Gender Information Value Date Recorded Sex Assigned at Not on file Legal Sex Male 3:29 PM EDT Gender Identity Not on file Sexual Orientation Not on file Plan of Treatment Health Maintenance Due Date Last Done Comments Hepatitis C Virus Screening 1970 HIV Screening 1983 DTaP/Tdap/Td Vaccines (1 - Tdap) 1989 Hepatitis B Vaccines (1 of 3 - 19+ 3-dose series) 10/1988 Pneumococcal Vaccines 50+ (1 of 1 - PCV) 2020 Zoster (Shingles) Vaccine (1 of 2) 2020 COVID-19 Vaccine (1 - season) 2025 RSV Vaccine 50 years and old er and Patients (1 - 1-dose 75+ series) 2045
--- OUTSIDE RECORDS SUMMARY | 2025-07-16 03:28 | XMS_ITS | Clinical Summary ---
Author Organization [employer] Address [address] [place] [address] [address] [place] [address] Care Team Providers Care Database Consultant Name Role Phone Unavailable Primary Care Provider [...] COVID-19 Vaccine (1 - 2023-2 5 season) 2025 Influenza Vaccine (#1) 2025 Tobacco Screening 07/18/2025 07/18/2024 DTaP/Tdap/Td Vaccines [...] patient's age to complete this topic Insurance [facility] [place] [address]
--- OUTSIDE RECORDS SUMMARY | 2025-07-16 03:28 | XMS_ITS | Data Portability ---
Author Organization [facility] Address [address] [place] [phone] Assessment No assessment recorded. Plan of Treatment [...] Recorded Time Impacted cerumen of bilateral ears [id number] 08 Active 2023 DANITA SHORT MD [address], [phone] [place] [address] [facility] 4 15:24:13 Problem Notes None recorded. Medical Equipment None Reported. Allergies Allergen ID Allergen Name Allergen Category Reaction Reaction Severity Criticality Documentation Date Start Date Code Code System Note Provider Name and Address Organization Details Recorded Time 141522 Product containin g penicilli n (product) medicatio n Not available Not available Not available 04/18/2024 [id number] SNOMED Serenity lino [facility] 4 15:41:32 Medications Name Sig Start Date [...] Updated DateTime 04/18/2024 165.1 cm 30.8 kg/m2 87512.59 g Serenity [place] - [facility] 04/18/2024 16:07:37 Social History None recorded. Functional Status None recorded. Mental Status None recorded. Family History Nothing Reported. Medical History Condition Response Emphysema Y Stroke Y Past Encounters Encounter ID Performer Location Encounter Start Date Encounter Closed Date Diagnosis/Indication Diagnosis SNOMED-CT Code Diagnosis ICD10 Code Diagnosis IMO Codes Diagnosis Note [id number] DANITA SHORT MD [facility] [address] [phone] 04/18/2024 15:22:36 04/19/2024 08:14:57 Impacted cerumen of bilateral ears [id number] 041231 H61.23 53-year-ol d male with a history [...] Recorded Advance Directives Directive None Recorded Payers Insurance Date Sequence Insurance Name Policy Number Policy Oakley Covered Member ID Oakley Member ID Guarantor Name 09/09/2024 1 [facility] (MEDICAID REPLACEMENT - HMO) [facility] Marcus Rosario [id number] Marcus Rosario 04/18/2024 1 [place] [facility] Marcus Rosario [id number] Marcus Rosario Notes Date Note Type Note Provider Name and Address Organization Details Recorded Time 04/18/2024 text/html ROS as noted in the HPI 53-year-old male smoker presents today for evaluation [...] concern for his hearing. DANITA SHORT MD [address] [place] [address], [place], [id number], [facility] - [facility] 04/24/2024 15:25:21
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
[2025-07-16 03:29] LABS: Hematocrit 47.4 % (42.0-52.0); Hemoglobin 16.2 g/dl (14.0-18.0); Imm Gran Abs Auto 0.03 X10*3/uL (0.00-0.03); Imm Gran Pct Auto 0.3 % (0.0-0.4); Lymphocytes Absolute Auto 3.6 X10*3/uL (1.2-4.9); Mean Corpuscular HGB Conc 34.2 g/dl (31.0-36.0); Mean Corpuscular Hemoglobin 30.5 pg (27.0-33.0); Mean Corpuscular Volume 89.3 fL (80.0-98.0); NRBC Abs Auto 0.000 X10*3/uL (0.0-0.012); NRBC Pct Auto 0.0 /100WBC (0.0-0.2); Platelet Count 421 X10*3/uL (160-400); Red Blood Count 5.31 X10*6/uL (4.60-5.80); White Blood Count 11.2 X10*3/uL (4.8-10.8)
[2025-07-16 03:45] LABS: IDNOW Serial# 58CA691E; Influenza B2 Negative (Negative)
[2025-07-16 03:46] LABS: COVID-19 Test Negative (Negative); IDNOW Serial# 55D5AD1C
[2025-07-16 03:54] LABS: Alanine Aminotransferase 20 U/L (0-40); Albumin Level 4.5 g/dL (3.5-5.0); Alkaline Phosphatase 119 U/L (39-117); Anion Gap 14 (12-20); Aspartate Amino Transferase 28 U/L (5-37); Blood Urea Nitrogen 9 mg/dL (9-16); Calcium 9.3 mg/dL (8.4-10.2); Carbon Dioxide 26 mmol/L (22-29); Chloride 105 mmol/L (96-108); Creatinine Clr Calc Pharmacy 76.4; Estimated Glomerular Filt Rate > 60; Potassium 4.6 mmol/L (3.3-5.1); Sodium 140 mmol/L (135-145); Total Protein 7.8 g/dL (6.5-8.0)
--- NOTE | 2025-07-16 05:27 | PC.NURSE ---
RN to bedside after patient was noted to hong at an EDT. Introductions were provided, pt reports that all he needs is a breathing treatment. He was conversing in full/complete sentences while speaking with this RN and did not appear to be any distress. The pt was made aware that only providers could order ed bronch protocols that would allow for Respiratory to come down and provide him a breathing treatment as RN's are no longer able to do that. He states that he has been here since 229 adding I could be at home for this, I just need a nebulizer machine. I'm leaving . The pt was observed to independently ambulate out of the ed with even/steady gait and without distress noted
== END 2025-07-16 05:43 | disposition left against medical advice (07) ==
PROVIDERS: Emergency Provider Emergency Medicine; PCP Internal Medicine
DX: R06.02 Shortness of breath (principal); R05.9 Cough, unspecified; Z11.52 Encounter for screening for COVID-19; Z79.899 Other long term (current) drug therapy
CPT/HCPCS: 36415; 71045; 80053; 85025; 87502; 87635; 99281

== ENCOUNTER → 2025-07-16 03:37 | Outpatient (BNV) | payer SELFPAY | PROVIDERS: Emergency Provider Emergency Medicine; PCP Internal Medicine; Visit Provider Radiology Diagnostic Radiology | DX: R05.9 Cough, unspecified (principal) | CPT/HCPCS: 71045 ==